=== PATIENT | female | born 1975 | race Hispanic/Latino ===

== ENCOUNTER 2018-07-30 15:27 | Emergency (ER) | payer BC ==
[2018-07-30] MEDS ORDERED: NA CHLORIDE 0.9% 1,000 ML ONE (16:11)
[2018-07-30] MEDS ORDERED: METOCLOPRAMIDE 10 MG/2mL INJ ONE (16:11)
--- NOTE | 2018-07-30 18:10 | ER ---
Nurse's Notes [facility] Name: Yesenia Stephen Age: 42 yrs Sex: Female : 1975 Arrival Date: 07/30/2018 Time: 15:30 Bed 7 Private MD: Libby Wallace H Diagnosis: Headache;Viral Syndrome Presentation: 07/30 15:36 Presenting complaint: Patient states: I started having a headache and stomach pain 2 kr2 days ago, I have had diarrhea. I have not vomited. I do have headaches but never had anything like this, I am sensitive to sound and light. I have been coughing and sneezing too. Transition of care: patient was not received from another setting of care. Onset of symptoms was July 28, 2018. Risk Assessment: Do you want to hurt yourself or someone else? Patient reports no desire to harm self or others. Initial Sepsis Screen: Does the patient meet any 2 criteria? No. Patient's initial sepsis screen is negative. Care prior to arrival: None. 15:36 Method Of Arrival: Ambulatory kr2 15:36 Acuity: HNANAH 2 kr2 16:10 Initial Sepsis Screen: Does the patient have a suspected source of infection? No. sv Patient's initial sepsis screen is negative. 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 - Social history:: Smoking status: Patient/guardian denies using tobacco. - Ebola Screening: : No symptoms or risks identified at this time. - Family history:: not pertinent. - Hospitalizations: : No recent hospitalization is reported. Screenin:10 Abuse screen: Denies threats or abuse. Denies injuries from another. Nutritional sv screening: No deficits noted. Tuberculosis screening: No symptoms or risk factors identified. Fall Risk None identified. Assessment: 16:10 General: Appears in no apparent distress. uncomfortable, well developed, Behavior is sv calm, cooperative, appropriate for age. Pain: Complains of pain in top of head, forehead, right methodist and left methodist Pain currently is 10 out of 10 on a pain scale. Pain began 2-3 days ago. Is continuous, Noted to be guarding, Also complains of photophobia. Neuro: Level of Consciousness is awake, alert, obeys commands, Oriented to person, place, time, situation, Moves all extremities. Full function Speech is normal. Respiratory: Respiratory effort is even, unlabored, Respiratory pattern is regular, symmetrical. GI: Reports lower abdominal pain, upper abdominal pain. Derm: Skin is normal, Skin temperature is hot. 18:18 Reassessment: Patient appears in no apparent distress at this time. Patient and/or sv family updated on plan of care and expected duration. Pain level reassessed. Patient is alert, oriented x 3, equal unlabored respirations, skin warm/dry/pink. Patient states feeling better. Patient states symptoms have improved. Vital Signs: 15:40 Pulse 127; Resp 22; Temp 100.4; Pulse Ox 97% on R/A; Weight 79.38 kg; Height 5 ft. 0 kr2 in. (152.40 cm); Pain 10/10; 16:19 BP 126 / 86; Pulse 101; Resp 16; Pulse Ox 99% ; sv 16:50 Temp 99.1(O); sv 18:18 BP 118 / 77; Pulse 99; Resp 16; Pulse Ox 99% ; sv 15:40 Body Mass Index 34.18 (79.38 kg, 152.40 cm) kr2 [place] Coma Score: 17:29 Eye Response: spontaneous(4). Verbal Response: oriented(5). Motor Response: obeys rn commands(6). Total: 15. ED Course: 15:30 Patient arrived in ED. sb2 15:30 Libby Wallace DO is Private Physician. sb2 15:39 Triage completed. kr2 15:41 Arm band placed on right wrist. kr2 15:46 Araceli Parsons, SHONA is Primary Nurse. sv 15:49 Jose Chávez MD is Attending Physician. rn 16:10 Patient has correct armband on for positive identification. Bed in low position. Call sv light in reach. Pulse ox on. NIBP on. Door closed. Noise minimized. Lights dimmed. Head of bed elevated. 16:10 Initial lab(s) drawn, by me, sent to lab. Flu and/or RSV swab sent to lab. Strep swab sv sent to lab. Inserted saline lock: 20 gauge in right antecubital area, using aseptic technique. Blood collected. Flushed right antecubital with 5 ml normal saline. 16:37 Group A Streptococcus Rapid Sc Sent. sv 16:37 Influenza Screen (A Sent. sv 16:44 Throat Culture Sent. sv 17:27 Urine collected: clean catch specimen, clear, jolene colored. jb1 18:18 No provider procedures requiring assistance completed. IV discontinued, intact, sv bleeding controlled, No redness/swelling at site. Pressure dressing applied. Administered Medications: 16:15 Drug: NS 0.9% 1000 ml Route: IV; Rate: 1000 ml; Site: right antecubital; sv 17:00 Follow up: Response: No adverse reaction; IV Status: Completed infusion; IV Intake: sv 1000ml 16:15 Drug: Reglan 10 mg Route: IVP; Site: right antecubital; sv 16:37 Follow up: Response: No adverse reaction sv Intake: 17:00 IV: 1000ml; Total: 1000ml. sv Outcome: 18:09 Discharge ordered by . rn 18:19 Discharged to home ambulatory. sv 18:19 Condition: stable 18:19 Discharge instructions given to patient, Instructed on discharge instructions, follow up and referral plans. Demonstrated understanding of instructions, follow-up care. 18:19 Patient left the ED. sv Signatures: Lebron San jb1 Araceli Parsons RN RN sv Jose Chávez MD MD rn Reaves, Karey, RN RN kr2 Crystal Mac2
--- NOTE | 2018-07-30 18:11 | EDPHYS ---
Physician Documentation [facility] Name: Yesenia Stephen Age: 42 yrs Sex: Female : 1975 Arrival Date: 07/30/2018 Time: 15:30 Bed 7 Private MD: Libby Wallace H ED Physician Jose Chávez HPI: 07/30 17:15 This 42 yrs old Female presents to ER via Ambulatory with complaints of rn Headache, Abdominal Pain. 17:15 The patient complains of pain to the top of head. The patient describes the headache as rn aching. 17:17 Onset: The symptoms/episode began/occurred 2 day(s) ago. Severity of symptoms: At its rn worst the pain was mild, in the emergency department the pain is unchanged. The patient has not experienced similar symptoms in the past. Reports low grade fever, headaches, congestion, fatigue.. 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 - Social history:: Smoking status: Patient/guardian denies using tobacco. - Ebola Screening: : No symptoms or risks identified at this time. - Family history:: not pertinent. - Hospitalizations: : No recent hospitalization is reported. ROS: 17:17 Constitutional: + fever and chills Eyes: Negative for injury, pain, redness, and returning officer, ENT: + mild congestion Neck: Negative for injury, pain, and swelling, Cardiovascular: Negative for chest pain, palpitations, and edema, Respiratory: Negative for shortness of breath, cough, wheezing, and pleuritic chest pain, Abdomen/GI: Negative for vomiting, diarrhea, and constipation, Back: Negative for injury and pain, MS/Extremity: Negative for injury and deformity, Skin: Negative for injury, rash, and discoloration, Neuro: Negative for numbness, tingling, and seizure. Exam: 17:17 Constitutional: This is a well developed, well nourished patient who is awake, alert, rn and in no acute distress. ambulatory to room without distress Head/Face: Normocephalic, atraumatic. Eyes: Pupils equal round and reactive to light, extra-ocular motions intact. Lids and lashes normal. Conjunctiva and sclera are non-icteric and not injected. Cornea within normal limits. Periorbital areas with no swelling, redness, or edema. ENT: Nares patent. No nasal discharge, no septal abnormalities noted. Mild pharyngeal erythema, no stridor, no cervical LAD, + left posterior auricular LAD. Neck: Trachea midline, no thyromegaly or masses palpated, and no cervical lymphadenopathy. Supple, full range of motion without nuchal rigidity, or vertebral point tenderness. No Meningismus. Cardiovascular: Regular rate and rhythm, No pulse deficits. Respiratory: Lungs have equal breath sounds bilaterally, clear to auscultation. No increased work of breathing, no retractions or nasal flaring. Abdomen/GI: Soft, non-tender, with normal bowel sounds. No distension or tympany. No guarding or rebound. No evidence of tenderness throughout. Skin: Warm, dry with normal turgor. Normal color with no rashes, no lesions, and no evidence of cellulitis. MS/ Extremity: Pulses equal, no cyanosis. Neurovascular intact. Full, normal range of motion. Equal circumference. Neuro: Awake and alert, GCS 15, oriented to person, place, time, and situation. Cranial nerves II-XII grossly intact. Motor strength 5/5 in all extremities. Sensory grossly intact. Cerebellar exam normal. Normal gait. Vital Signs: 15:40 Pulse 127; Resp 22; Temp 100.4; Pulse Ox 97% on R/A; Weight 79.38 kg; Height 5 ft. 0 kr2 in. (152.40 cm); Pain 10/10; 16:19 BP 126 / 86; Pulse 101; Resp 16; Pulse Ox 99% ; sv 16:50 Temp 99.1(O); sv 18:18 BP 118 / 77; Pulse 99; Resp 16; Pulse Ox 99% ; sv 15:40 Body Mass Index 34.18 (79.38 kg, 152.40 cm) kr2 [place] Coma Score: 17:29 Eye Response: spontaneous(4). Verbal Response: oriented(5). Motor Response: obeys rn commands(6). Total: 15. MDM: 15:49 Patient medically screened. rn 17:29 Differential diagnosis: migraine, tension headache, vasomotor headache, Strep, flu, rn ike. Data reviewed: vital signs, nurses notes, lab test result(s), and as a result, I will discharge patient. Counseling: I had a detailed discussion with the patient and/or guardian regarding: the historical points, exam findings, and any diagnostic results supporting the discharge/admit diagnosis, lab results, the need for outpatient follow up, to return to the emergency department if symptoms worsen or persist or if there are any questions or concerns that arise at home. Response to treatment: the patient's symptoms have markedly improved after treatment, and as a result, I will discharge patient. Special discussion: I discussed with the patient/guardian in detail that at this point there is no indication for admission to the hospital. It is understood, however, that if the symptoms persist or worsen the patient needs to return immediately for re-evaluation. ED course: Pt improved with motrin, no meningismus, neg flu/strep/mono/UA, ambulatory, no peritoneal signs, I really feel like she has mono given constellation of symptoms, and posterior auricular LAD. Recommend dc home with fever control, fluids, and return precautions.. 07/30 16:22 Order name: [place] Screen; Complete Time: 17:08 EDOK 07/30 16:22 Order name: Influenza Screen (A ; Complete Time: 16:49 EDOK 07/30 16:22 Order name: Group A Streptococcus Rapid Sc; Complete Time: 16:49 EDOK 07/30 15:55 Order name: IV Start; Complete Time: 16:19 rn 07/30 16:38 Order name: Throat Culture EDOK 07/30 17:30 Order name: Urine Dipstick--Ancillary (enter results) eb Administered Medications: 16:15 Drug: NS 0.9% 1000 ml Route: IV; Rate: 1000 ml; Site: right antecubital; sv 17:00 Follow up: Response: No adverse reaction; IV Status: Completed infusion; IV Intake: sv 1000ml 16:15 Drug: Reglan 10 mg Route: IVP; Site: right antecubital; sv 16:37 Follow up: Response: No adverse reaction sv Disposition: 07/30/18 18:09 Discharged to Home. Impression: Headache, Viral Syndrome. - Condition is Stable. - Discharge Instructions: General Headache Without Cause, Infectious Mononucleosis. - Medication Reconciliation Form, Thank You Letter, Antibiotic Education, Prescription Opioid Use form. - Follow up: Private Physician; When: As needed; Reason: Recheck today's complaints, Re-evaluation by your physician. - Problem is new. - Symptoms have improved. Signatures: Dispatcher [employer] Araceli Dietz RN RN sv Jose Chávez MD MD rn Reaves, Karey, RN RN kr2 Corrections: (The following items were deleted from the chart) 18:19 18:09 07/30/2018 18:09 Discharged to Home. Impression: Headache; Viral Syndrome. sv Condition is Stable. Forms are Medication Reconciliation Form, Thank You Letter, Antibiotic Education, Prescription Opioid Use. Follow up: Private Physician; When: As needed; Reason: Recheck today's complaints, Re-evaluation by your physician. Problem is new. Symptoms have improved. rn
[2018-07-30 19:22] VITALS: O2SAT 99
[2018-07-30 19:23] VITALS: TEMP 99.1
[2018-07-30 19:24] VITALS: BP 118/77
[2018-07-30 19:26] LABS: Urine Blood TRACE (NEG); Urine Glucose NEGATIVE (NEG); Urine Protein NEGATIVE (NEG)
== END 2018-07-30 18:19 | disposition home or self-care (01) ==
LOC: ER 15:27
DX: B34.9 Viral infection, unspecified (principal); I10 Essential (primary) hypertension
CPT/HCPCS: 36415; 81003; 86308; 87070; 87081; 87804; 96361; 96374; 99284; J2765; J7030

== ENCOUNTER 2018-12-23 09:04 | Emergency (ER) | payer BC ==
[2018-12-23] MEDS ORDERED: NA CHLORIDE 0.9% 1,000 ML ONE (09:43)
[2018-12-23 09:46] LABS: Absolute Monocytes 0.5 K/uL (0.1-1.3); Absolute Neutrophil 2.7 K/uL (1.8-8.0); Basophils % 0.8 % (0-1.3); Hematocrit 43.3 % (36.0-45.0); Lymphocytes % 46.4 % (15.3-44.8); MPV 9.6 fL (7.6-11.3); Monocytes % 8.1 % (3.3-12.3); RBC Red Blood Cell Count 4.69 M/uL (3.86-4.86)
[2018-12-23 10:10] LABS: ALT/SGPT 41 U/L (12-78); AST/SGOT 24 U/L (15-37); Albumin 4.1 g/dL (3.4-5.0); Alkaline Phosphatase 83 U/L (45-117); BUN Blood Urea Nitrogen 12 mg/dL (7-18); Bicarbonate 25 mmol/L (21-32); Bilirubin Direct 0.1 mg/dL (0-0.2); Bilirubin Total 0.7 mg/dL (0.2-1.0); Glucose Level 96 mg/dL (74-106); Potassium 3.8 mmol/L (3.5-5.1); Protein, Total 7.6 g/dL (6.4-8.2); Sodium Level 140 mmol/L (136-145)
[2018-12-23] MEDS ORDERED: DICYCLOMINE HCL 10 MG CAP ONE (10:17)
[2018-12-23 10:32] LABS: Blood Morphology Comment NOT SEEN (NOT SEEN); Platelet Estimate ADEQ
--- NOTE | 2018-12-23 11:00 | ER ---
Nurse's Notes [facility] Name: Yesenia Stephen Age: 43 yrs Sex: Female : 1975 Arrival Date: 12/23/2018 Time: 09:08 Bed 5 Private MD: Libby Wallace H Diagnosis: Lower abdominal pain, unspecified Presentation: 12/23 09:16 Presenting complaint: Patient states: a week ago, i started having this abd pain, more hj on my lower abdomen area, so i took azo for UTI, went to the urgent care today, ran my urine, they told me i dont have UTI; but the pain is still there on both my lower abd, the pain moves to the back sometimes; denies N/V; denies diarrhea; denies fever and chills;. Transition of care: patient was not received from another setting of care. Onset of symptoms was December 23, 2018. Risk Assessment: Do you want to hurt yourself or someone else? Patient reports no desire to harm self or others. Initial Sepsis Screen: Does the patient meet any 2 criteria? No. Patient's initial sepsis screen is negative. Does the patient have a suspected source of infection? No. Patient's initial sepsis screen is negative. Care prior to arrival: None. 09:16 Method Of Arrival: Ambulatory 09:16 Acuity: HANNAH 3 hj Triage Assessment: 09:20 General: Appears in no apparent distress. uncomfortable, Behavior is calm, cooperative, hj appropriate for age. Pain: Complains of pain in right lower quadrant and left lower quadrant Pain radiates to left low back and right low back. GI: Reports lower abdominal pain. 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 - Social history:: Smoking status: Patient/guardian denies using tobacco, Patient/guardian denies using alcohol. - Ebola Screening: : Patient negative for fever greater than or equal to 101.5 degrees Fahrenheit, and additional compatible Ebola Virus Disease symptoms Patient denies exposure to infectious person Patient denies travel to an Ebola-affected area in the 21 days before illness onset. Screenin:21 Abuse screen: Denies threats or abuse. Denies injuries from another. Nutritional hj screening: No deficits noted. Tuberculosis screening: No symptoms or risk factors identified. Fall Risk None identified. Assessment: 09:21 GI: Bowel sounds present X 4 quads. Abd is soft and non tender. hj 09:21 General: Appears in no apparent distress. uncomfortable, Behavior is calm, cooperative, hj appropriate for age. Pain: Complains of pain in left lower quadrant and right lower quadrant Pain radiates to right low back and left low back. Neuro: Level of Consciousness is awake, alert, obeys commands, Oriented to person, place, time, situation, Appropriate for age. Cardiovascular: Capillary refill < 3 seconds Patient's skin is warm and dry. Respiratory: Airway is patent Respiratory effort is even, unlabored, Respiratory pattern is regular, symmetrical. : No signs and/or symptoms were reported regarding the genitourinary system. EENT: No signs and/or symptoms were reported regarding the EENT system. Derm: No signs and/or symptoms reported regarding the dermatologic system. Musculoskeletal: No signs and/or symptoms reported regarding the musculoskeletal system. 09:30 Reassessment: pt BP- 80/40; HR- 49; pt was placed on Trendelenburg position; provider hj notified with order;. 09:35 Reassessment: Patient and/or family updated on plan of care and expected duration. Pain hj level reassessed. Patient is alert, oriented x 3, equal unlabored respirations, skin warm/dry/pink. Patient states feeling better. Patient states symptoms have improved. Vital Signs: 09:21 BP 141 / 100; Pulse 67; Resp 18; Temp 98.0(TE); Pulse Ox 100% on R/A; Weight 78.93 kg; hj Height 5 ft. 0 in. (152.40 cm); Pain 5/10; 09:30 BP 80 / 40; Pulse 49; Resp 18; Pulse Ox 100% on R/A; hj 09:34 BP 116 / 85; Pulse 18; Resp 18; Pulse Ox 100% on R/A; hj 09:51 BP 122 / 81; Pulse 60; Resp 18; Pulse Ox 100% on R/A; hj 10:20 BP 121 / 80; Pulse 62; Resp 18; Pulse Ox 100% on R/A; hj 09:21 Body Mass Index 33.98 (78.93 kg, 152.40 cm) hj 09:30 provider notified with ordser; hj ED Course: 09:08 Patient arrived in ED. mr 09:08 Libby Wallace DO is Private Physician. mr 09:12 Cynthia Cooper FNP-C is PHCP. snw 09:12 Emily Fernandez MD is Attending Physician. snw 09:16 Brandt Webster, SHONA is Primary Nurse. hj 09:18 Triage completed. hj 09:21 Arm band placed on right wrist. hj 09:21 Patient has correct armband on for positive identification. Placed in gown. Bed in low hj position. Call light in reach. Side rails up X2. 09:25 Missed attempt(s): 22 gauge in right antecubital area. Bleeding controlled, band aid ss applied, catheter tip intact. 09:32 Inserted saline lock: 20 gauge in left antecubital area, using aseptic technique. Blood ss collected. 10:59 Libby Wallace DO is Referral Physician. snw 11:07 No provider procedures requiring assistance completed. IV discontinued, intact, hj bleeding controlled, No redness/swelling at site. Pressure dressing applied. Administered Medications: 09:34 Drug: NS 0.9% 1000 ml Route: IV; Rate: 1 bolus; Site: left antecubital; hj 10:36 Follow up: IV Status: Completed infusion; IV Intake: 1000ml hj 10:02 Drug: Bentyl 20 mg Route: PO; hj 10:07 Follow up: Response: No adverse reaction hj Intake: 10:36 IV: 1000ml; Total: 1000ml. hj Outcome: 11:00 Discharge ordered by . snw 11:07 Discharged to home ambulatory. hj 11:07 Condition: stable 11:07 Discharge instructions given to patient, Instructed on discharge instructions, follow up and referral plans. medication usage, Demonstrated understanding of instructions, follow-up care, medications, Prescriptions given X 1. 11:08 Patient left the ED. hj Signatures: Cynthia Cooper FNP-C FNP-Selma Fuentes mr Deirdre Edgar RN RN ss Joaquin, Henry, RN RN hj Corrections: (The following items were deleted from the chart) 09:37 09:30 Reassessment: pt BP- 80/40; HR- 49; provider notified with order; rehana kimball
--- NOTE | 2018-12-23 11:01 | EDPHYS ---
Physician Documentation [facility] Name: Yesenia Stephen Age: 43 yrs Sex: Female : 1975 Arrival Date: 12/23/2018 Time: 09:08 Bed 5 Private MD: Libby Wallace H ED Physician Emily Fernandez HPI: 12/23 09:28 This 43 yrs old Female presents to ER via Ambulatory with complaints of snw Abdominal Pain, Back Pain. 09:28 The patient presents with abdominal pain right lower quadrant, in the left lower snw quadrant. Onset: The symptoms/episode began/occurred gradually, 1 week(s) ago, and became persistent. The symptoms radiate to right back. Associated signs and symptoms: none. The symptoms are described as constant. Severity of pain: At its worst the pain was mild moderate. The patient has experienced similar episodes in the past. The patient has been recently seen by a physician: The patient has been recently seen at an urgent care, just prior to arrival, for similar complaints, and was sent to the [facility] Emergency Department for further evaluation. 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 - Social history:: Smoking status: Patient/guardian denies using tobacco, Patient/guardian denies using alcohol. - Ebola Screening: : Patient negative for fever greater than or equal to 101.5 degrees Fahrenheit, and additional compatible Ebola Virus Disease symptoms Patient denies exposure to infectious person Patient denies travel to an Ebola-affected area in the 21 days before illness onset. ROS: 09:28 Constitutional: Negative for fever, chills, and weight loss, Eyes: Negative for injury, snw pain, redness, and discharge, ENT: Negative for injury, pain, and discharge, Neck: Negative for injury, pain, and swelling, Cardiovascular: Negative for chest pain, palpitations, and edema, Respiratory: Negative for shortness of breath, cough, wheezing, and pleuritic chest pain, Back: Negative for injury and pain, : Negative for injury, bleeding, discharge, and swelling, MS/Extremity: Negative for injury and deformity, Skin: Negative for injury, rash, and discoloration, Neuro: Negative for headache, weakness, numbness, tingling, and seizure. 09:28 Abdomen/GI: Positive for abdominal pain, of the right lower quadrant and left lower quadrant. Exam: 09:28 Constitutional: This is a well developed, well nourished patient who is awake, alert, snw and in no acute distress. Head/Face: Normocephalic, atraumatic. Eyes: Pupils equal round and reactive to light, extra-ocular motions intact. Lids and lashes normal. Conjunctiva and sclera are non-icteric and not injected. Cornea within normal limits. Periorbital areas with no swelling, redness, or edema. ENT: Nares patent. No nasal discharge, no septal abnormalities noted. Tympanic membranes are normal and external auditory canals are clear. Oropharynx with no redness, swelling, or masses, exudates, or evidence of obstruction, uvula midline. Mucous membranes moist. Neck: Trachea midline, no thyromegaly or masses palpated, and no cervical lymphadenopathy. Supple, full range of motion without nuchal rigidity, or vertebral point tenderness. No Meningismus. Chest/axilla: Normal chest wall appearance and motion. Nontender with no deformity. No lesions are appreciated. Cardiovascular: Regular rate and rhythm with a normal S1 and S2. No gallops, murmurs, or rubs. Normal PMI, no JVD. No pulse deficits. Respiratory: Lungs have equal breath sounds bilaterally, clear to auscultation and percussion. No rales, rhonchi or wheezes noted. No increased work of breathing, no retractions or nasal flaring. Abdomen/GI: Soft, mild tender to lower abdomen with radiation to back, with normal bowel sounds. No distension or tympany. No guarding or rebound. No evidence of tenderness throughout. Back: No spinal tenderness. No costovertebral tenderness. Full range of motion. Skin: Warm, dry with normal turgor. Normal color with no rashes, no lesions, and no evidence of cellulitis. MS/ Extremity: Pulses equal, no cyanosis. Neurovascular intact. Full, normal range of motion. Neuro: Awake and alert, GCS 15, oriented to person, place, time, and situation. Cranial nerves II-XII grossly intact. Motor strength 5/5 in all extremities. Sensory grossly intact. Cerebellar exam normal. Normal gait. Psych: Awake, alert, with orientation to person, place and time. Behavior, mood, and affect are within normal limits. Vital Signs: 09:21 BP 141 / 100; Pulse 67; Resp 18; Temp 98.0(TE); Pulse Ox 100% on R/A; Weight 78.93 kg; hj Height 5 ft. 0 in. (152.40 cm); Pain 5/10; 09:30 BP 80 / 40; Pulse 49; Resp 18; Pulse Ox 100% on R/A; hj 09:34 BP 116 / 85; Pulse 18; Resp 18; Pulse Ox 100% on R/A; hj 09:51 BP 122 / 81; Pulse 60; Resp 18; Pulse Ox 100% on R/A; hj 10:20 BP 121 / 80; Pulse 62; Resp 18; Pulse Ox 100% on R/A; hj 09:21 Body Mass Index 33.98 (78.93 kg, 152.40 cm) hj 09:30 provider notified with ordser; hj MDM: 09:13 Patient medically screened. snw 11:13 Data reviewed: vital signs, nurses notes. Data interpreted: Pulse oximetry: on room air snw is 100 %. Interpretation: normal. Special discussion: I have referred the patient to see his PCP for further evaluation of high blood pressure. Based on the history and exam findings, there is no indication for further emergent testing or inpatient evaluation. I discussed with the patient/guardian the need to see the primary care provider for further evaluation of the symptoms. 12/23 09:13 Order name: Basic Metabolic Panel; Complete Time: 10:14 snw 12/23 09:13 Order name: CBC with Diff; Complete Time: 10:33 snw 12/23 09:13 Order name: Creatinine for Radiology; Complete Time: 10:14 snw 12/23 09:13 Order name: Hepatic Function; Complete Time: 10:14 snw 12/23 09:13 Order name: Urine Microscopic Only snw 12/23 09:47 Order name: Manual Differential; Complete Time: 10:33 EDMS 12/23 09:13 Order name: IV Saline Lock; Complete Time: 09:33 snw 12/23 09:13 Order name: Labs collected and sent; Complete Time: 09:33 snw 12/23 11:05 Order name: Urine Dipstick--Ancillary (enter results) bd 12/23 11:05 Order name: Urine --Ancillary (enter results) bd Administered Medications: 09:34 Drug: NS 0.9% 1000 ml Route: IV; Rate: 1 bolus; Site: left antecubital; hj 10:36 Follow up: IV Status: Completed infusion; IV Intake: 1000ml hj 10:02 Drug: Bentyl 20 mg Route: PO; hj 10:07 Follow up: Response: No adverse reaction Disposition: 14:25 Co-signature as Attending Physician, Emily Fernandez MD. ma2 Disposition: 12/23/18 11:00 Discharged to Home. Impression: Lower abdominal pain, unspecified. - Condition is Stable. - Discharge Instructions: Abdominal Pain, Adult, Hypertension. - Prescriptions for Bentyl 20 mg Oral Tablet - take 1 tablet by ORAL route every 6 hours As needed; 20 tablet. - Medication Reconciliation Form, Thank You Letter, Antibiotic Education, Prescription Opioid Use, Work release form form. - Follow up: Libby Wallace DO; When: 1 - 2 days; Reason: Recheck today's complaints, Continuance of care, Re-evaluation by your physician. Follow up: Emergency Department; When: As needed; Reason: Worsening of condition. Signatures: Dispatcher [facility] ED[facility] Cynthia Cooper, [employer] ARCHITECT-Csnw Brandt Webster RN RN hj Alzahri, Mohammad, MD MD ma2 Corrections: (The following items were deleted from the chart) 11:08 11:00 12/23/2018 11:00 Discharged to Home. Impression: Lower abdominal pain, hj unspecified. Condition is Stable. Forms are Medication Reconciliation Form, Thank You Letter, Antibiotic Education, Prescription Opioid Use. Follow up: Libby Wallace; When: 1 - 2 days; Reason: Recheck today's complaints, Continuance of care, Re-evaluation by your physician. Follow up: Emergency Department; When: As needed; Reason: Worsening of condition. snw
[2018-12-23 11:09] LABS: Urine Blood NEGATIVE (NEG); Urine Glucose NEGATIVE (NEG); Urine Protein 1+ (NEG)
[2018-12-23 11:15] LABS: Urine Bacteria <20 /HPF (<20); Urine Culture Reflex Order NOT NEEDED; Urine RBC NONE SEEN /HPF (NONE SEEN)
[2018-12-23 11:17] VITALS: TEMP 98; O2SAT 100
[2018-12-23 11:22] VITALS: BP 121/80
== END 2018-12-23 11:08 | disposition home or self-care (01) ==
LOC: ER 09:04
DX: R10.30 Lower abdominal pain, unspecified (principal); I10 Essential (primary) hypertension; Z87.442 Personal history of urinary calculi
CPT/HCPCS: 36415; 80048; 80076; 81003; 81015; 81025; 85025; 96360; 99284; J7030

== ENCOUNTER 2019-08-09 10:42 | Emergency (ER) | payer BC ==
[2019-08-09] MEDS ORDERED: ONDANSETRON 4 MG/2 ML VIAL ONE (12:03)
[2019-08-09] MEDS ORDERED: FAMOTIDINE 20 MG/2 ML VIAL IV ONE (12:03)
[2019-08-09] MEDS ORDERED: NA CHLORIDE 0.9% 1,000 ML ONE (12:03)
[2019-08-09 12:21] LABS: Absolute Lymphocytes (CBC) 1.9 K/uL (0.7-4.9); Basophils % 0.2 % (0-1.3); Hematocrit 40.9 % (36.0-45.0); Lymphocytes % 20.4 % (15.3-44.8); MPV 9.3 fL (7.6-11.3); RBC Red Blood Cell Count 4.51 M/uL (3.86-4.86)
[2019-08-09] MEDS ORDERED: LIDOCAINE VISCOUS 2% SOLN 15 ML UDC ONE (12:27)
[2019-08-09] MEDS ORDERED: MAGNE/ALUM HYDROXD 30 ML UCUP ONE (12:27)
[2019-08-09 12:37] LABS: Albumin 3.8 g/dL (3.4-5.0); Bilirubin Direct 0.1 mg/dL (0-0.2); Bilirubin Total 0.5 mg/dL (0.2-1.0); Potassium 3.4 mmol/L (3.5-5.1); Protein, Total 7.4 g/dL (6.4-8.2)
--- NOTE | 2019-08-09 13:42 | EDPHYS ---
Physician Documentation [facility] Name: Yesenia Stephen Age: 43 yrs Sex: Female : 1975 Arrival Date: 08/09/2019 Time: 10:47 Bed 24 Private MD: Libby Wallace H ED Physician Emily Fernandez HPI: 08/09 13:35 This 43 yrs old Female presents to ER via Wheelchair with complaints of ma2 Abdominal Pain, Dizziness. 13:35 Onset: The symptoms/episode began/occurred gradually, 1 day(s) ago. Associated signs ma2 and symptoms: Pertinent negatives: agitation, chest pain, diaphoresis, headache, palpitations, , shortness of breath. Severity of symptoms: At their worst the symptoms were mild in the emergency department the symptoms are unchanged. The patient has experienced a previous episode. epigastric abdominal pain . 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 - Social history:: Smoking status: Patient/guardian denies using tobacco, The patient lives. - Ebola Screening: : No symptoms or risks identified at this time. - Family history:: not pertinent. ROS: 13:35 Constitutional: Negative for fever, chills, and weight loss, Cardiovascular: Negative ma2 for chest pain, palpitations, and edema, Respiratory: Negative for shortness of breath, cough, wheezing, and pleuritic chest pain, Abdomen/GI: Negative for abdominal pain, nausea, diarrhea, and constipation, Back: Negative for injury and pain, MS/Extremity: Negative for injury and deformity. Exam: 13:35 Constitutional: This is a well developed, well nourished patient who is awake, alert, ma2 and in no acute distress. Chest/axilla: Normal chest wall appearance and motion. Nontender with no deformity. No lesions are appreciated. Cardiovascular: Regular rate and rhythm with a normal S1 and S2. No gallops, murmurs, or rubs. Normal PMI, no JVD. No pulse deficits. Respiratory: Lungs have equal breath sounds bilaterally, clear to auscultation and percussion. No rales, rhonchi or wheezes noted. No increased work of breathing, no retractions or nasal flaring. Abdomen/GI: Soft, non-tender, with normal bowel sounds. No distension or tympany. No guarding or rebound. No evidence of tenderness throughout. MS/ Extremity: Pulses equal, no cyanosis. Neurovascular intact. Full, normal range of motion. Neuro: Awake and alert, GCS 15, oriented to person, place, time, and situation. Cranial nerves II-XII grossly intact. Motor strength 5/5 in all extremities. Sensory grossly intact. Cerebellar exam normal. Normal gait. Vital Signs: 10:55 BP 109 / 93; Pulse 78; Resp 16; Temp 97.9; Pulse Ox 100% on R/A; Weight 67.59 kg; hb Height 5 ft. (152.40 cm); Pain 10/10; 12:30 BP 110 / 64; Pulse 80; Resp 18; Temp 98; Pulse Ox 100% on R/A; mg2 12:30 BP 106 / 76; Pulse 75; Resp 18; Temp 98; Pulse Ox 100% on R/A; mg2 10:55 Body Mass Index 29.10 (67.59 kg, 152.40 cm) hb MDM: 11:50 Patient medically screened. ma2 13:35 Differential diagnosis: sepsis, gastricitis peptic ulcer disease, pancratitis . Data ma2 reviewed: vital signs, nurses notes. Counseling: I had a detailed discussion with the patient and/or guardian regarding: the historical points, exam findings, and any diagnostic results supporting the discharge/admit diagnosis, the presence of at least one elevated blood pressure reading (>120/80) during this emergency department visit, the need for outpatient follow up. Response to treatment: the patient's symptoms have markedly improved after treatment. ED course: patient has pancreatitis, she is s/p cholecystectomy, no biliary bstruction on lab, alessandra score is low with mortality less than 2%, she has no sirs will do outpatient f/u with gi, return precaution given . 08/09 11:59 Order name: Basic Metabolic Panel mg2 08/09 11:59 Order name: CBC with Diff mg2 08/09 11:59 Order name: Creatinine for Radiology mg2 08/09 11:59 Order name: Hepatic Function mg2 08/09 11:59 Order name: Lipase mg2 08/09 12:34 Order name: Creatinine (Radiology Only); Complete Time: 13:03 EDMS 08/09 12:37 Order name: Basic Metabolic Panel; Complete Time: 13:03 EDMS 08/09 12:37 Order name: Liver (Hepatic) Function; Complete Time: 13:03 EDMS 08/09 12:37 Order name: Lipase; Complete Time: 13:03 EDMS 08/09 12:42 Order name: CBC with Automated Diff; Complete Time: 13:03 EDMS 08/09 13:04 Order name: US Abdomen Limited ma2 08/09 11:59 Order name: IV Saline Lock; Complete Time: 12:14 mg2 08/09 11:59 Order name: Labs collected and sent; Complete Time: 12:14 mg2 Administered Medications: 12:13 Drug: Zofran 4 mg Route: IVP; Site: right forearm; mg2 13:48 Follow up: Response: No adverse reaction; Marked relief of symptoms mg2 12:14 Drug: NS 0.9% 1000 ml Route: IV; Rate: 1000 ml; Site: right forearm; mg2 13:49 Follow up: Response: No adverse reaction; IV Status: Completed infusion; IV Intake: mg2 1000ml 12:14 Drug: Pepcid 20 mg Route: IVP; Site: right forearm; mg2 13:48 Follow up: Response: No adverse reaction; Marked relief of symptoms mg2 12:28 Drug: GI Cocktail without - (Maalox Suspension 30 ml, Lidocaine Liquid 2 % 15 mg2 ml) Route: PO; 13:48 Follow up: Response: No adverse reaction mg2 Disposition: 08/09/19 13:41 Discharged to Home. Impression: Acute pancreatitis, unspecified. - Condition is Stable. - Discharge Instructions: Acute Pancreatitis. - Prescriptions for Zofran 4 mg Oral Tablet - take 1 tablet by ORAL route every 12 hours As needed; 20 tablet. Pepcid 20 mg Oral Tablet - take 1 tablet by ORAL route once daily for 10 days; 10 tablet. Tylenol- Codeine #3 300-30 mg Oral Tablet - take 2 tablet by ORAL route every 6 hours As needed; 30 tablet. - Medication Reconciliation Form, Thank You Letter, Antibiotic Education, Prescription Opioid Use form. - Follow up: En Angulo MD; When: Tomorrow; Reason: Continuance of care. Signatures: Dispatcher [employer] EDBhakti Jackson RN RN Emily Fernandez MD MD ma2 Chevy Miguel RN RN mg2 Corrections: (The following items were deleted from the chart) 14:05 13:41 08/09/2019 13:41 Discharged to Home. Impression: Acute pancreatitis, unspecified. mg2 Condition is Stable. Prescriptions for Zofran 4 mg Oral Tablet - take 1 tablet by ORAL route every 12 hours As needed; 20 tablet, Pepcid 20 mg Oral Tablet - take 1 tablet by ORAL route once daily for 10 days; 10 tablet. and Forms are Medication Reconciliation Form, Thank You Letter, Antibiotic Education, Prescription Opioid Use. Follow up: En Angulo; When: Tomorrow; Reason: Continuance of care. ma2
--- NOTE | 2019-08-09 13:42 | ER ---
Nurse's Notes [facility] Name: Yesenia Stephen Age: 43 yrs Sex: Female : 1975 Arrival Date: 08/09/2019 Time: 10:47 Bed 24 Private MD: Libby Wallace H Diagnosis: Acute pancreatitis, unspecified Presentation: 08/09 10:53 Presenting complaint: N/V/D and epigastric pain upon waking today. Transition of care: hb patient was not received from another setting of care. Onset of symptoms was August 09, 2019. Risk Assessment: Do you want to hurt yourself or someone else? Patient reports no desire to harm self or others. Initial Sepsis Screen: Does the patient meet any 2 criteria? No. Patient's initial sepsis screen is negative. Care prior to arrival: None. 10:53 Method Of Arrival: Wheelchair hb 10:53 Acuity: HANNAH 3 hb 12:15 Initial Sepsis Screen: Does the patient have a suspected source of infection? No. mg2 Patient's initial sepsis screen is negative. 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 - Social history:: Smoking status: Patient/guardian denies using tobacco, The patient lives. - Ebola Screening: : No symptoms or risks identified at this time. - Family history:: not pertinent. Screenin:15 Abuse screen: Denies threats or abuse. Denies injuries from another. Nutritional mg2 screening: No deficits noted. Tuberculosis screening: No symptoms or risk factors identified. Fall Risk IV access (20 points). Assessment: 12:14 General: Appears in no apparent distress. comfortable, Behavior is calm, cooperative. mg2 Pain: Complains of pain in abdomen Pain does not radiate. Pain currently is 5 out of 10 on a pain scale. Quality of pain is described as aching, Pain began gradually, Is intermittent. Neuro: Level of Consciousness is awake, alert, obeys commands, Oriented to person, place, time, situation. Cardiovascular: Capillary refill < 3 seconds Patient's skin is warm and dry. Respiratory: Airway is patent Respiratory effort is even, unlabored, Respiratory pattern is regular, symmetrical. GI: Bowel sounds present X 4 quads. Abd is soft and non tender Reports upper abdominal pain, diarrhea, epigastric pain, vomiting. : No signs and/or symptoms were reported regarding the genitourinary system. EENT: No signs and/or symptoms were reported regarding the EENT system. Derm: Skin is intact, is healthy with good turgor, Skin is pink, warm \T\ dry. normal. Musculoskeletal: Circulation, motion, and sensation intact. Capillary refill < 3 seconds. 14:04 Reassessment: Patient appears in no apparent distress at this time. Patient states mg2 feeling better. Patient states symptoms have improved. Vital Signs: 10:55 BP 109 / 93; Pulse 78; Resp 16; Temp 97.9; Pulse Ox 100% on R/A; Weight 67.59 kg; hb Height 5 ft. (152.40 cm); Pain 10/10; 12:30 BP 110 / 64; Pulse 80; Resp 18; Temp 98; Pulse Ox 100% on R/A; mg2 12:30 BP 106 / 76; Pulse 75; Resp 18; Temp 98; Pulse Ox 100% on R/A; mg2 10:55 Body Mass Index 29.10 (67.59 kg, 152.40 cm) hb ED Course: 10:47 Patient arrived in ED. mr 10:48 Libby Wallace, is Private Physician. mr 10:53 Arm band placed on. hb 10:54 Triage completed. hb 11:50 Emily Fernandez MD is Attending Physician. ma2 11:58 Chevy Miguel, SHONA is Primary Nurse. mg2 12:15 Patient has correct armband on for positive identification. Door closed. Warm blanket mg2 given. 12:15 No provider procedures requiring assistance completed. Inserted saline lock: 20 gauge mg2 in right forearm, using aseptic technique. Blood collected. 13:41 En Angulo MD is Referral Physician. ma2 14:04 IV discontinued, intact, bleeding controlled, No redness/swelling at site. Pressure mg2 dressing applied. Administered Medications: 12:13 Drug: Zofran 4 mg Route: IVP; Site: right forearm; mg2 13:48 Follow up: Response: No adverse reaction; Marked relief of symptoms mg2 12:14 Drug: NS 0.9% 1000 ml Route: IV; Rate: 1000 ml; Site: right forearm; mg2 13:49 Follow up: Response: No adverse reaction; IV Status: Completed infusion; IV Intake: mg2 1000ml 12:14 Drug: Pepcid 20 mg Route: IVP; Site: right forearm; mg2 13:48 Follow up: Response: No adverse reaction; Marked relief of symptoms mg2 12:28 Drug: GI Cocktail without - (Maalox Suspension 30 ml, Lidocaine Liquid 2 % 15 mg2 ml) Route: PO; 13:48 Follow up: Response: No adverse reaction mg2 Intake: 13:49 IV: 1000ml; Total: 1000ml. mg2 Outcome: 13:41 Discharge ordered by . erna 14:05 Discharged to home ambulatory, with family. mg2 14:05 Condition: stable 14:05 Discharge instructions given to patient, family, Instructed on discharge instructions, follow up and referral plans. medication usage, Demonstrated understanding of instructions, follow-up care, medications, Prescriptions given X 3. 14:05 Patient left the ED. mg2 Signatures: Selma Pruett Heather RN RN Emily Fernandez MD MD ma2 Gardose, Michele, RN RN mg2
[2019-08-09 14:13] VITALS: O2SAT 100
[2019-08-09 14:15] VITALS: BP 106/76; TEMP 98
== END 2019-08-09 14:05 | disposition home or self-care (01) ==
LOC: ER 10:42
DX: K85.90 Acute pancreatitis without necrosis or infection, unspecified (principal); I10 Essential (primary) hypertension; Z87.442 Personal history of urinary calculi
CPT/HCPCS: 96361; 85025; 80048; 36415; 80076; 83690; 96375; 96374; 99284; J7030; J2405

== ENCOUNTER 2019-08-10 13:37 | Emergency (ER) | payer BC ==
[2019-08-10 15:11] LABS: Absolute Lymphocytes (CBC) 2.8 K/uL (0.7-4.9); Basophils % 0.3 % (0-1.3); Hematocrit 41.8 % (36.0-45.0); Lymphocytes % 42.1 % (15.3-44.8); MPV 9.3 fL (7.6-11.3); RBC Red Blood Cell Count 4.54 M/uL (3.86-4.86)
[2019-08-10] MEDS ORDERED: HYDROMORPHONE HCL 1 MG/ML INJ ONE (15:11)
[2019-08-10] MEDS ORDERED: FAMOTIDINE 20 MG/2 ML VIAL IV ONE (15:11)
[2019-08-10] MEDS ORDERED: ONDANSETRON 4 MG/2 ML VIAL ONE (15:26)
[2019-08-10] MEDS ORDERED: NA CHLORIDE 0.9% 1,000 ML ONE (15:26)
[2019-08-10 15:30] LABS: Albumin 3.6 g/dL (3.4-5.0); Bilirubin Direct 0.1 mg/dL (0-0.2); Bilirubin Total 0.3 mg/dL (0.2-1.0); Potassium 3.6 mmol/L (3.5-5.1); Protein, Total 7.2 g/dL (6.4-8.2)
--- NOTE | 2019-08-10 15:38 | RAD REPORT ---
EXAM DESCRIPTION: CT - Abdomen Pelvis W Contrast - 08/10/2019 3:20 pm CLINICAL HISTORY: upper abd pain. elevated lipase COMPARISON: July 2017 TECHNIQUE: Biphasic, helical CT imaging of the abdomen and pelvis was performed following 100 ml non -ionic IV contrast. No oral contrast. All CT scans are performed using dose optimization technique as appropriate and may include automated exposure control or mA/KV adjustment according to patient size. FINDINGS: No suspicious findings in the lung bases. Liver size is normal and stable. Several cysts are present in the medial right lobe of the liver unch anged from 2017. No portal vein abnormality seen. No splenic abnormality seen. Gallbladder is absent. No biliary tree dilatation. No pancreatic parenchymal mass. Pancreatic contour matches 2017. No peripancreatic inflammatory flui d or stranding. Symmetric renal function is seen with no hydronephrosis or suspicious renal mass. No pyelonephritis o r acute parenchymal process. Small staghorn calcification lower pole left kidney matches the prior udy. No new adrenal abnormality. Urinary bladder is nearly fully contracted limiting assessment. Uter us and ovaries show no suspicious findings. Small left ovarian cyst is present not regarded as suspic ious. There is probably an involuting cyst of the right ovary. Stomach is grossly normal. Retained gastric content somewhat limits gastric mucosal surface assessmen t. No dilated large or small bowel. There are multiple fluid-filled distal small bowel loops. The annel endix is not clearly identifiable. No direct or indirect evidence for appendicitis. No free air, pneumatosis or focal inflammatory stranding. Trace free fluid in the dependent pelvis no t outside of physiologic limits. No hernia, mass or bulky lymphadenopathy. No suspicious bony findings. Prominent for age degenerative change L5-S1 disc level. IMPRESSION: No pancreatic or peripancreatic abnormality seen. No CT pancreatitis findings. Liver cysts match the 2017 study. Cholecystectomy clips are present. Nondilated distal fluid-filled small bowel loops are present. Nonspecific enteritis is possible.
[2019-08-10 15:46] LABS: Urine Bacteria <20 /HPF (<20); Urine RBC <5 /HPF (NONE SEEN)
[2019-08-10 15:47] LABS: Urine Culture Reflex Order NOT NEEDED; Urine Mucus 1+ /HPF (NONE SEEN)
[2019-08-10 15:47] LABS: Urine Blood NEGATIVE (NEG); Urine Glucose NEGATIVE (NEG); Urine Protein NEGATIVE (NEG); Urine Specific Gravity 1.025 (1.005-1.030); Urine pH 6.5 (5.0-7.0)
[2019-08-10 16:46] LABS: Blood Morphology Comment NOT SEEN (NOT SEEN); Platelet Estimate ADEQ
[2019-08-10] MEDS ORDERED: METRONIDAZOLE 500mg IVPB 500 MG/100 ML BAG IV ONE (16:57)
[2019-08-10] MEDS ORDERED: levoFLOXacin 500 MG TAB ONE (16:57)
[2019-08-10] MEDS ORDERED: KETOROLAC 30 MG/ML INJ ONE (17:09)
--- NOTE | 2019-08-10 17:25 | ER ---
Nurse's Notes [facility] Name: Yesenia Stephen Age: 43 yrs Sex: Female : 1975 Arrival Date: 08/10/2019 Time: 13:41 Bed 20 Private MD: Libby Wallace H Diagnosis: Acute Abdominal Pain;Acute Enteritis Presentation: 08/10 13:57 Presenting complaint: Patient states: Dr. Angulo's office sent me back here to see if ss maybe i can get a Cat scan, i am feeling really dizzy, they did blood work on Fridayaug 09 here, i got the prescriptions filled and it is not helping, and my stomach is still hurting in the middle, i am just not any better, they said to call his office if they had any questions. Transition of care: patient was not received from another setting of care. Onset of symptoms was August 10, 2019. Risk Assessment: Do you want to hurt yourself or someone else? Patient reports no desire to harm self or others. Initial Sepsis Screen: Does the patient meet any 2 criteria? No. Patient's initial sepsis screen is negative. Does the patient have a suspected source of infection? No. Patient's initial sepsis screen is negative. Care prior to arrival: None. 13:57 Method Of Arrival: Ambulatory ss 13:57 Acuity: HANNAH 3 ss Triage Assessment: 14:00 General: Appears uncomfortable, Behavior is calm, cooperative, appropriate for age. ss Pain: Complains of pain in abdomen. RRT: 13:59 LMP 07/11/2019 ss Historical: - Allergies: 14:01 NKDA; ss - Home Meds: 14:01 lisinopril Oral [Active]; Pepcid Oral [Active]; Zofran Oral [Active]; ss acetaminophen-codeine 300-15 mg Oral tab 1 tab every 4-6 hours [Active]; - PMHx: 14:01 Hypertension; Kidney stones; ss - PSHx: 14:01 Appendectomy; Cholecystectomy; ; ss - Immunization history:: Adult Immunizations. - Social history:: Smoking status: . - Ebola Screening: : Patient denies travel to an Ebola-affected area in the 21 days before illness onset. Screenin:11 Abuse screen: Denies threats or abuse. Nutritional screening: No deficits noted. tw2 Tuberculosis screening: No symptoms or risk factors identified. Fall Risk None identified. Assessment: 15:07 General: Appears in no apparent distress. uncomfortable, Behavior is calm, cooperative. rv Pain: Complains of pain in abdomen. Neuro: Level of Consciousness is awake, alert, obeys commands, Oriented to person, place, time, situation. Cardiovascular: Patient's skin is warm and dry. Respiratory: Airway is patent. GI: No signs and/or symptoms were reported involving the gastrointestinal system. : No signs and/or symptoms were reported regarding the genitourinary system. EENT: No signs and/or symptoms were reported regarding the EENT system. Derm: Skin is intact. Musculoskeletal: No signs and/or symptoms reported regarding the musculoskeletal system. 16:44 Reassessment: Patient appears in no apparent distress at this time. Patient and/or rv family updated on plan of care and expected duration. Pain level reassessed. Patient is alert, oriented x 3, equal unlabored respirations, skin warm/dry/pink. Patient states feeling better. Patient states symptoms have improved. Vital Signs: 13:59 BP 119 / 90; Pulse 74; Resp 18; Temp 99(TE); Pulse Ox 98% on R/A; Weight 67.59 kg; ss Height 5 ft. 0 in. (152.40 cm); Pain 10/10; 15:00 BP 109 / 81; Pulse 58; Resp 16; Pulse Ox 100% ; rv 15:36 BP 107 / 71; Pulse 64; Resp 17; Pulse Ox 98% ; rv 16:45 BP 121 / 71; Pulse 86; Resp 16; Pulse Ox 98% on R/A; rv 18:11 BP 124 / 74; Pulse 81; Resp 16; Pulse Ox 98% on R/A; rv 13:59 Body Mass Index 29.10 (67.59 kg, 152.40 cm) ED Course: 13:41 Patient arrived in ED. am2 13:44 Libby Wallace DO is Private Physician. am2 13:59 Triage completed. ss 13:59 Arm band placed on. ss 14:01 Bed in low position. Call light in reach. tw2 14:11 Meir Parker RN is Primary Nurse. rv 14:34 Surjit Munguia MD is Attending Physician. wa 15:07 Inserted saline lock: 22 gauge in right antecubital area, using aseptic technique. rv Blood collected. 17:18 En Angulo MD is Referral Physician. wa 18:11 No provider procedures requiring assistance completed. IV discontinued, intact, rv bleeding controlled, No redness/swelling at site. Pressure dressing applied. Administered Medications: 15:12 Drug: Pepcid 20 mg Route: IVP; Site: right antecubital; rv 16:45 Follow up: Response: No adverse reaction rv 15:13 Drug: Dilaudid 1 mg {Note: rass 0.} Route: IVP; Site: right antecubital; rv 16:46 Follow up: Response: No adverse reaction; Marked relief of symptoms; Pain is decreased; rv RASS: Alert and Calm (0) 15:30 Drug: Zofran 4 mg Route: IVP; Site: right antecubital; rv 16:46 Follow up: Response: No adverse reaction rv 15:30 Drug: NS 0.9% 1000 ml Route: IV; Rate: 1 bolus; Site: right antecubital; rv 16:45 Follow up: IV Status: Completed infusion; IV Intake: 1000ml rv 17:01 Drug: LevaQUIN 500 mg Route: PO; rv 18:10 Follow up: Response: No adverse reaction rv 17:02 Drug: Flagyl 500 mg Volume: 100 ml; Route: IVPB; Rate: 200 ml/hr; Infused Over: 30 rv mins; Site: right antecubital; 18:10 Follow up: IV Status: Completed infusion; IV Intake: 100ml rv 18:10 Drug: TORadol 30 mg Route: IVP; Site: right antecubital; rv 18:10 Follow up: Response: Medication administered at discharge. rv Intake: 16:45 IV: 1000ml; Total: 1000ml. rv 18:10 IV: 100ml; Total: 1100ml. rv Outcome: 17:20 Discharge ordered by . wa 18:11 Discharged to home ambulatory, with family. rv 18:11 Condition: improved 18:11 Discharge instructions given to patient, family, Instructed on discharge instructions, follow up and referral plans. medication usage, Demonstrated understanding of instructions, follow-up care, medications, Prescriptions given X 5 18:12 Patient left the ED. rv Signatures: Deirdre Edgar RN RN ss Nelly Huffman RN RN tw2 Ayana Rose am2 Surjit Munguia MD MD wa Vicente, Ronaldo, RN RN rv
--- NOTE | 2019-08-10 17:25 | EDPHYS ---
Physician Documentation [facility] Name: Yesenia Stephen Age: 43 yrs Sex: Female : 1975 Arrival Date: 08/10/2019 Time: 13:41 Bed 20 Private MD: Libby Wallace H ED Physician Surjit Munguia HPI: 08/10 15:24 This 43 yrs old Female presents to ER via Ambulatory with complaints of gi wa center for CT. 15:24 The patient presents with abdominal pain in the epigastric area. Onset: The wa symptoms/episode began/occurred yesterday. The symptoms do not radiate. Associated signs and symptoms: Pertinent positives: nausea, dizziness, Pertinent negatives: chest pain, constipation, diarrhea, dysuria, fever, palpitations, shortness of breath. The symptoms are described as sharp. Modifying factors: The symptoms are alleviated by nothing, the symptoms are aggravated by nothing. Severity of pain: At its worst the pain was severe in the emergency department the pain is unchanged. The patient has not experienced similar symptoms in the past. The patient has been recently seen by a physician: yesterday, in this ED. dx'd with acute pancreatitis. d/c'd home with f/u to G. states pain not improving. saw GI today. sent here for further eval. 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 - Social history:: Smoking status: . - Ebola Screening: : Patient denies travel to an Ebola-affected area in the 21 days before illness onset. ROS: 15:28 Constitutional: Negative for fever, chills, and weight loss, Eyes: Negative for injury, wa pain, redness, and discharge, ENT: Negative for injury, pain, and discharge, Neck: Negative for injury, pain, and swelling, Cardiovascular: Negative for chest pain, palpitations, and edema, Respiratory: Negative for shortness of breath, cough, wheezing, and pleuritic chest pain, Back: Negative for injury and pain, : Negative for injury, bleeding, discharge, and swelling, MS/Extremity: Negative for injury and deformity, Skin: Negative for injury, rash, and discoloration, Psych: Negative for depression, anxiety, suicide ideation, homicidal ideation, and hallucinations. 15:28 Abdomen/GI: Positive for abdominal pain, Negative for nausea, vomiting, and diarrhea. 15:28 Neuro: Positive for dizziness, Negative for altered mental status, headache. 15:28 All other systems are negative. Exam: 15:28 Constitutional: This is a well developed, well nourished patient who is awake, alert, wa and in no acute distress. Head/Face: Normocephalic, atraumatic. Eyes: Pupils equal round and reactive to light, extra-ocular motions intact. Lids and lashes normal. Conjunctiva and sclera are non-icteric and not injected. Cornea within normal limits. Periorbital areas with no swelling, redness, or edema. ENT: Nares patent. No nasal discharge, no septal abnormalities noted. Tympanic membranes are normal and external auditory canals are clear. Oropharynx with no redness, swelling, or masses, exudates, or evidence of obstruction, uvula midline. Mucous membranes moist. Neck: Trachea midline, no thyromegaly or masses palpated, and no cervical lymphadenopathy. Supple, full range of motion without nuchal rigidity, or vertebral point tenderness. No Meningismus. Chest/axilla: Normal chest wall appearance and motion. Nontender with no deformity. No lesions are appreciated. Cardiovascular: Regular rate and rhythm with a normal S1 and S2. No gallops, murmurs, or rubs. Normal PMI, no JVD. No pulse deficits. Respiratory: Lungs have equal breath sounds bilaterally, clear to auscultation and percussion. No rales, rhonchi or wheezes noted. No increased work of breathing, no retractions or nasal flaring. Back: No spinal tenderness. No costovertebral tenderness. Full range of motion. Skin: Warm, dry with normal turgor. Normal color with no rashes, no lesions, and no evidence of cellulitis. MS/ Extremity: Pulses equal, no cyanosis. Neurovascular intact. Full, normal range of motion. Neuro: Awake and alert, GCS 15, oriented to person, place, time, and situation. Cranial nerves II-XII grossly intact. Motor strength 5/5 in all extremities. Sensory grossly intact. Cerebellar exam normal. Normal gait. Psych: Awake, alert, with orientation to person, place and time. Behavior, mood, and affect are within normal limits. 15:28 Abdomen/GI: Inspection: abdomen appears normal, Bowel sounds: normal, in all quadrants, Palpation: soft, in all quadrants, moderate abdominal tenderness, in the epigastric area. Vital Signs: 13:59 BP 119 / 90; Pulse 74; Resp 18; Temp 99(TE); Pulse Ox 98% on R/A; Weight 67.59 kg; ss Height 5 ft. 0 in. (152.40 cm); Pain 10/10; 15:00 BP 109 / 81; Pulse 58; Resp 16; Pulse Ox 100% ; rv 15:36 BP 107 / 71; Pulse 64; Resp 17; Pulse Ox 98% ; rv 16:45 BP 121 / 71; Pulse 86; Resp 16; Pulse Ox 98% on R/A; rv 18:11 BP 124 / 74; Pulse 81; Resp 16; Pulse Ox 98% on R/A; rv 13:59 Body Mass Index 29.10 (67.59 kg, 152.40 cm) MDM: 14:34 Patient medically screened. ga 15:29 Differential diagnosis: seen and dx'd with elevated lipase, pancreatitis. will CT as ga this is pt's first episode. will control pain. will reassess. 16:55 Data reviewed: vital signs, nurses notes. Test interpretation: by ED physician or ga midlevel provider: lipase back into nml range. CT abd: no pancreatic abnml. noted enteritis picture however. . Response to treatment: the patient's symptoms have markedly improved after treatment. ED course: pt advised 3 loose BMs. will give abx. discussed with GI Dr. Angulo. pt will f/u with his office. 08/10 14:52 Order name: Basic Metabolic Panel ga 08/10 14:52 Order name: CBC with Diff ga 08/10 14:52 Order name: Hepatic Function ga 08/10 14:52 Order name: Lipase ga 08/10 14:52 Order name: Urine Microscopic Only ga 08/10 15:06 Order name: Urine Dipstick--Ancillary (enter results) 08/10 15:06 Order name: Urine --Ancillary (enter results) 08/10 15:13 Order name: CBC with Automated Diff; Complete Time: 16:50 EDMS 08/10 15:30 Order name: Basic Metabolic Panel; Complete Time: 16:50 EDMS 08/10 15:30 Order name: Liver (Hepatic) Function; Complete Time: 16:50 EDMS 08/10 15:30 Order name: Lipase; Complete Time: 16:51 EDMS 08/10 15:50 Order name: Urine Microscopic Only; Complete Time: 16:50 EDMS 08/10 15:50 Order name: Urine --Ancillary; Complete Time: 16:52 EDMS 08/10 15:50 Order name: Urine Dipstick-Ancillary; Complete Time: 16:52 EDMS 08/10 14:52 Order name: IV Saline Lock; Complete Time: 15:06 ga 08/10 14:52 Order name: Labs collected and sent; Complete Time: 15:06 ga 08/10 14:52 Order name: Urine Dipstick-Ancillary (obtain specimen); Complete Time: 15:06 ga 08/10 14:54 Order name: CT Abd/Pelvis - IV Contrast Only ga 08/10 15:44 Order name: CT; Complete Time: 16:51 EDMS 08/10 16:47 Order name: Manual Differential; Complete Time: 16:50 EDMS Administered Medications: 15:12 Drug: Pepcid 20 mg Route: IVP; Site: right antecubital; rv 16:45 Follow up: Response: No adverse reaction rv 15:13 Drug: Dilaudid 1 mg {Note: rass 0.} Route: IVP; Site: right antecubital; rv 16:46 Follow up: Response: No adverse reaction; Marked relief of symptoms; Pain is decreased; rv RASS: Alert and Calm (0) 15:30 Drug: Zofran 4 mg Route: IVP; Site: right antecubital; rv 16:46 Follow up: Response: No adverse reaction rv 15:30 Drug: NS 0.9% 1000 ml Route: IV; Rate: 1 bolus; Site: right antecubital; rv 16:45 Follow up: IV Status: Completed infusion; IV Intake: 1000ml rv 17:01 Drug: LevaQUIN 500 mg Route: PO; rv 18:10 Follow up: Response: No adverse reaction rv 17:02 Drug: Flagyl 500 mg Volume: 100 ml; Route: IVPB; Rate: 200 ml/hr; Infused Over: 30 rv mins; Site: right antecubital; 18:10 Follow up: IV Status: Completed infusion; IV Intake: 100ml rv 18:10 Drug: TORadol 30 mg Route: IVP; Site: right antecubital; rv 18:10 Follow up: Response: Medication administered at discharge. rv Disposition: 08/10/19 17:20 Discharged to Home. Impression: Acute Abdominal Pain, Acute Enteritis. - Condition is Stable. - Discharge Instructions: Abdominal Pain, Adult, [id number]. - Prescriptions for Zofran 4 mg Oral Tablet - take 1 tablet by ORAL route every 12 hours As needed; 20 tablet. Pepcid 20 mg Oral Tablet - take 1 tablet by ORAL route once daily for 10 days; 10 tablet. Whitmore 5- 325 mg Oral Tablet - take 1 tablet by ORAL route every 8 hours As needed; 15 tablet. Flagyl 500 mg Oral Tablet - take 1 tablet by ORAL route every 8 hours for 7 days; 21 tablet. Cipro 500 mg Oral Tablet - take 1 tablet by ORAL route every 12 hours for 7 days; 14 tablet. - Medication Reconciliation Form, Thank You Letter, Antibiotic Education, Prescription Opioid Use form. - Follow up: En Angulo MD; When: 1 - 2 days; Reason: Recheck today's complaints. - Problem is new. - Symptoms have improved. - Notes: follow up with Dr. Angulo as planned. return here immediately if worsening concerns Signatures: Dispatcher [employer] EDUT Deirdre Edgar RN RN ss Surjit Munguia MD MD wa Vicente, Ronaldo, RN RN rv Corrections: (The following items were deleted from the chart) 18:12 17:20 08/10/2019 17:20 Discharged to Home. Impression: Acute Abdominal Pain; Acute rv Enteritis. Condition is Stable. Forms are Medication Reconciliation Form, Thank You Letter, Antibiotic Education, Prescription Opioid Use. Follow up: En Angulo; When: 1 - 2 days; Reason: Recheck today's complaints. Problem is new. Symptoms have improved. wa
[2019-08-10 18:19] VITALS: TEMP 99
[2019-08-10 18:22] VITALS: O2SAT 98
[2019-08-10 18:24] VITALS: BP 124/74
== END 2019-08-10 18:12 | disposition home or self-care (01) ==
LOC: ER 13:37
DX: K52.9 Noninfective gastroenteritis and colitis, unspecified (principal); I10 Essential (primary) hypertension; Z87.442 Personal history of urinary calculi
CPT/HCPCS: 96365; 96361; 85025; 80048; 36415; 81025; 80076; 83690; 74177; 96375; 99284; Q9967; J1170; J7030; J2405; 81003; 81015

== ENCOUNTER 2025-03-31 22:09 | Observation (INO) | payer BC ==
--- OUTSIDE RECORDS SUMMARY | 2025-03-31 22:12 | XMS REPORT | Clinical Summary ---
Author Name Unknown Organization [facility] Address [address] [place] [address] Care Team Providers Care Skidder Driver Name Role Phone Libby Wallace MD Unavailable [phone] Arline Page MD Primary Care Prov ider Allergies Active Allergy Reactions Criticality Noted Date Comments Fluconazole Itching,Rash Low 09/30/2023 Valacyclovir Itching,Rash Low 09/30/2023 Medications lisinopril-hyd rochlorothiazi de (PRINZIDE,ZEST ORETIC) 20-12.5 mg per tablet 0 Active pantoprazole (PROTONIX) 40 mg EC tablet TK 1 T PO D 0 Active metFORMIN (GLUCOPHAGE-XR ) 500 mg 24 hr tablet TAKE ONE (1) TABLET(S) BY MOUTH ONCE A DAY WITH DINNER. 3 Active ergocalciferol (DRISDOL) 50,000 units capsule TAKE ONE (1) CAPSULE(S) BY MOUTH ONCE WEEKLY. 3 Active sertraline (ZOLOFT) 50 mg tablet TAKE ONE (1) TABLET(S) BY MOUTH ONCE A DAY. 3 Active carboxymethylc ellulose/citri c (PLENITY ORAL) Take 3 capsules by mouth twice daily. 3 Active venlafaxine 150 MG tr24 TAKE ONE (1) TABLET(S) BY MOUTH ONCE A DAY. Active Mounjaro 10 mg/0.5 mL injection INJECT 10 MG SUBCUTANEOUSLY WEEKLY. Active potassium citrate (UROCIT-K) 5 mEq SR tablet TAKE TWO (2) TABLET(S) BY MOUTH IN THE MORNING AND 1 TABLET IN THE EVENING WITH MEAL. Active Active Problems Problem Noted Date Diagnosed Date Fatty liver 08/25/2016 Hypertension Gastroesophageal reflux disease Encounters Date Type Department Care Team Description 11/11/2024 11:20 AM CDT Office Visit [facility] at [facility] [address] [address], [address] [place] [address] Ayana Canchola, MAGDIEL Encounter for other screening for malignant neoplasm of breast (Primary Dx) 11/11/2024 10:10 AM CDT Ancillary Procedure [facility] at [place] [id number] [place] [address], [address] [address] Ayana Canchola, MAGDIEL Encounter for other screening for malignant neoplasm of breast 11/11/2024 Travel 11/05/2024 Documentation Breast Imaging [address] [facility], [address]th [place] [address] Chevy Mason, RT after 03/31/2024 Immunizations Immunization Administration Dates Next Due Influenza, Unspecified 06/15/2019 Influenza, injectable, quadr ivalent, preservative free 06/15/2019 Pfizer SARS-CoV-2 Bivalent V accine 12+ y.o. (30 mcg/0.3 mL) 06/03/2022 Pfizer SARS-CoV-2 Vaccination (Purple Cap) 09/05,03/06/2021,02/13/2021 Surgical History Surgery Date Site/Laterality Comments APPENDECTOMY CHOLECYSTECTOMY SECTION, CLASSIC x 4 HYSTEROSCOPY COLONOSCOPY 08/25/2018 - 08/24/2019 EGD multiple COLONOSCOPY 08/25/2020 - 08/24/2021 Medical History Medical History Date Comments Hypertension Gastroesophageal reflux disease Cyst of breast 2017 Fatty liver 2016 Renal stone 1992 Squamous cell carcinoma in s itu of skin 08/09/2019 she is followed by a dermato logist outside [place] esophagus She is follo wed by a hospitality aide outside for this Family History Medical History Relation Name Comments Throat cancer Brother Geoff smoker and alc ohol use Stomach cancer Maternal Aunt Barbie Hernandez -Other cancer Other cousin Relation Name Status Comments Brother Geoff Maternal Aunt Barbie Hernandez Other cousin Social History Tobacco Use Types Packs/Day Years Used Date Smoking Tobacco: Former Cigarettes Q uit: 1994 Smokeless Tobacco: Never Tobacco Cessation:Counseling Given: Not Answered Comments:She reports that she has not smoked more than 100 cigarettes in her life time Alcohol Use Standard Drinks/Week Comments Never 0 (1 standard drink = 0.6 oz pur e alcohol) Comments No Sex and Gender Information Value Date Recorded Sex Assigned at Not on file 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 She denies any history of abnormal Pap smears in the past. Last Filed Vital Signs Vital Sign Reading Time Taken Comments Blood Pressure 110/80 11/11/2024 10:37 AM CDT Pulse 92 11/11/2024 10:37 AM CDT Temperature - - Respiratory Rate 18 11/11/2024 10:3 7 AM CDT Oxygen Saturation - - Inhaled Oxygen Concentration - - Weight 68.5 kg (151 lb 0.2 oz) 11/11/2024 10:37 AM CDT Intentional weight loss, Pt is taking Mounjaro Height 151 cm (4' 11.45") 11/11/2024 10 :37 AM CDT Body Mass Index 30.04 11/11/2024 10:37 AM CDT Plan of Treatment Upcoming Encounters Date Type Department Care Team (Late st Contact Info) Description 11/17/2025 10:10 AM CDT Ancillary Procedure [facility] Diagnostic Imaging at [employer] Building 1 [address] [facility] [address], [address] [place] [address] Ayana Canchola, MACHINE PACKER [address] [place] [address] [email or web address] 11/17/2025 11:20 AM CDT Office Visit [facility] at [facility] [address] [address] [address] [facility] [address] [place] [address] Ayana Canchola, MACHINE PACKER [address] [place], [place] [id number] [email or web address] Health Maintenance Due Date Last Done Comments Pneumococcal Vaccine: 50+ Ye ars ( - PCV) 2023 COVID-19 Vaccine (2023-2 5 season) 2024 06/03/2022, 09/05/2021, 03/06/2021, Additional history exists Influenza Vaccine (#1) 2025 06/15/2019, 2018 Procedures Procedure Name Priority Date/Time Associated Diagnosis Comments MAMMO DIGITAL SCREENING BILATERAL W LEROY Routine 11/11/2024 10:31 AM CDT Encounter for other screening for malignant neoplasm of breast after 03/31/2024 Results * Mammography Digital Screening Bilateral with Leroy (11/11/2024 10:31 AM CDT) Anatomical Region Laterality Modality Breast Bilateral Mammography Impressions 11/11/2024 11:05 AM CDT Bilateral There is no mammographic evidence of malignancy. Overall BI-RAD Category: 1 - Negative Recommend return to annual screening mammography, due on 10/2025. Narrative 11/11/2024 11:05 AM CDT CLINICAL INDICATION: Patient is a 49 y.o. female and is seen for screening. Mammography Digital Screening Bilateral with Leroy Computer-aided detection was utilized by the radiologist in the interpretation of this examination. Tomosynthesis was performed in CC and MLO projections. COMPARISON: The present examination has been compared to prior imaging studies performed : 10/20/2020 Mammography Digital Screening Bilateral with Leroy at [facility], 10/26/2021 Screening Mammogram w Leroy - Bilateral at [facility], 10/31/2021 Mammography Digital Screening Technical Repeat Right at [facility], 10/30/2022 Screening Mammogram w Leroy - Bilateral at [facility], 11/06/2023 Mammography Digital Screening Bilateral with Leroy at [facility] FINDINGS: There are scattered areas of fibroglandular density. Bilateral No dominant mass, architectural distortion, or suspicious calcifications are identified. Ayana Canchola MAGDIEL IM MAMMOGRAPHY ORDERABLE S Final Result after 03/31/2024 Insurance PPO POS [facility] PPO POS [facility] PPO POS Care Teams Skidder Driver Relationship Specialty Start Date End Date Libby Wallace MD [address] [place] [address] PCP - External Primary Care Provider Family Practice 10/12/19 Arline Page MD [address] [place] [id number] [email or web address] PCP - General Breast Surgery 10/13/19
[2025-03-31] MEDS ORDERED: NA CHLORIDE 0.9% 1,000 ML ONE (22:15)
[2025-03-31 23:10] LABS: Absolute Lymphocytes (CBC) 2.6 K/uL (0.7-4.9); Hematocrit 38.8 % (36.0-45.0); Hemoglobin 13.0 g/dL (12.0-15.0); MCH 31.0 pg (27.0-35.0); MCHC 33.4 g/dL (32.0-36.0); MCV 92.8 fL (80-100); MPV 8.1 fL (7.6-11.3); Nucleated RBC Absolute Count 0.0 (0-0); Nucleated Red Blood Cells % 0.1 % (0-0); RBC Red Blood Cell Count 4.18 M/uL (3.86-4.86); White Blood Count 9.00 thou/uL (4.3-10.9)
[2025-03-31 23:38] LABS: Anion Gap 13.5 mEq/L (5.0-15.0); BUN Blood Urea Nitrogen 11.0 mg/dL (7-18); Glucose Level 88.0 mg/dL (74-106); Magnesium 1.4 mg/dL (1.6-2.4); Troponin High Sensitivity 4.2 pg/mL (<58.9)
[2025-03-31 23:41] LABS: Potassium 2.5 mEq/L (3.5-5.1)
[2025-03-31] MEDS ORDERED: POTASSIUM CL SA 10 MEQ TAB PO ONE (23:56)
[2025-03-31] MEDS ORDERED: Magnesium Sulfate 2gm IVPB 2 G/50 ML BAG IV ONE (23:56)
--- NOTE | 2025-04-01 00:37 | ER ---
Nurse's Notes [facility] Name: Yesenia Stephen Age: 49 yrs Sex: Female : 1975 Arrival Date: 03/31/2025 Time: 22:09 Bed 18 Private MD: Diagnosis: Syncope;Hypokalemia;Hypomagnesemia;Constipation Presentation: 03/31 22:15 Chief complaint: EMS states: patient had a syncopal episode while in the rest room, she rg5 is been constipated for 4 days now and taken laxative to help her. Coronavirus screen: Client denies travel out of the [place] in the last 14 days. Ebola Screen: Patient negative for fever greater than or equal to 101.5 degrees Fahrenheit, and additional compatible Ebola Virus Disease symptoms Patient denies exposure to infectious person. Patient denies travel to an Ebola-affected area in the 21 days before illness onset. Initial Sepsis Screen: Does the patient meet any 2 criteria? No. Patient's initial sepsis screen is negative. Does the patient have a suspected source of infection? No. Patient's initial sepsis screen is negative. Risk Assessment: Do you want to hurt yourself or someone else? Patient reports no desire to harm self or others. Onset of symptoms was March 31, 2025. Care prior to arrival: Medication(s) given: Normal saline infusion, 800 droperidol 2.5mg IV IV initiated. 20 GA, in the left forearm, Glucose check: 100. Activity prior to arrival: unresponsive, syncope. 22:15 Method Of Arrival: EMS: [facility] rg5 22:15 Acuity: HANNAH 3 rg5 Triage Assessment: 22:15 General: Appears in no apparent distress. Behavior is calm, cooperative, appropriate rg5 for age. Pain: Denies pain. Neuro: Level of Consciousness is awake, alert, obeys commands, Oriented to person, place, time, situation, Reports a syncopal episode. Cardiovascular: Denies chest pain, Patient's skin is warm and dry. Rhythm is sinus rhythm. Respiratory: Airway is patent Respiratory effort is even, unlabored, Respiratory pattern is regular, symmetrical. GI: Abdomen is round non-distended, Bowel sounds present in left lower quadrant Reports constipation, cramping. : No signs and/or symptoms were reported regarding the genitourinary system. Derm: Skin is intact, Skin is dry, Skin is normal, Skin temperature is warm. Musculoskeletal: Circulation, motion, and sensation intact. Range of motion: intact in all extremities. 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 - Infectious Disease History:: Denies. - Social history:: Smoking status: Patient denies any tobacco usage or history of. Screenin:15 [facility] ED Fall Risk Assessment (Adult) History of falling in the last 3 months, rg5 including since admission No falls in past 3 months (0 pts) Confusion or Disorientation No (0 pts) Intoxicated or Sedated No (0 pts) Impaired Gait No (0 pts) Mobility Assist Device Used No (0 pt) Altered Elimination Yes (1 pt) Score/Fall Risk Level 0 - 2 = Low Risk Oriented to surroundings, Maintained a safe environment, Provided non-skid footwear. Abuse screen: Denies threats or abuse. Nutritional screening: No deficits noted. Tuberculosis screening: No symptoms or risk factors identified. Assessment: 22:39 Reassessment: Patient and/or family updated on plan of care and expected duration. Pain rg5 level reassessed. Patient is alert, oriented x 3, equal unlabored respirations, skin warm/dry/pink. Neuro: Reports a syncopal episode. 23:15 Reassessment: Patient appears in no apparent distress at this time. No changes from cp4 previously documented assessment. Patient and/or family updated on plan of care and expected duration. Pain level reassessed. Patient is alert, oriented x 3, equal unlabored respirations, skin warm/dry/pink. 23:15 Neuro: Level of Consciousness is awake, alert, obeys commands, Oriented to person, cp4 place, time, situation. Cardiovascular: Patient's skin is warm and dry. Rhythm is sinus rhythm. 04/01 00:15 Reassessment: Patient appears in no apparent distress at this time. Patient and/or cp4 family updated on plan of care and expected duration. Pain level reassessed. Patient is alert, oriented x 3, equal unlabored respirations, skin warm/dry/pink. 01:15 Reassessment: Patient appears in no apparent distress at this time. Patient and/or cp4 family updated on plan of care and expected duration. Pain level reassessed. Patient is alert, oriented x 3, equal unlabored respirations, skin warm/dry/pink. 02:10 Reassessment: Patient appears in no apparent distress at this time. Patient and/or cp4 family updated on plan of care and expected duration. Pain level reassessed. Patient is alert, oriented x 3, equal unlabored respirations, skin warm/dry/pink. Vital Signs: 03/31 22:15 BP 95 / 62; Pulse 95; Resp 18; Temp 98; Pulse Ox 98% on R/A; Weight 52.16 kg; Height 5 rg5 ft. 0 in. ; Pain 0/10; 23:39 BP 94 / 62; Pulse 99; Resp 18; Pulse Ox 99% ; cp4 04/01 01:00 BP 95 / 68; Pulse 94; Resp 18; Pulse Ox 96% ; cp4 02:00 BP 99 / 74; Pulse 95; Resp 17; Pulse Ox 98% ; cp4 03/31 22:15 Body Mass Index 22.46 (52.16 kg, 152.4 cm) rg5 03/31 22:15 Pain Scale: Adult rg5 ED Course: 03/31 22:10 Patient arrived in ED. rv1 22:15 Steve Camargo NP is PHCP. cr8 22:15 Armaan Xiong MD is Attending Physician. cr8 22:15 No provider procedures requiring assistance completed. Inserted saline lock: 20 gauge rg5 in left antecubital area, using aseptic technique. Blood collected. Flushed with 10 mL NS. Patient maintains SpO2 saturation greater than 95% on room air. 22:15 Arm band placed on. EKG completed in triage. Results shown to MD. rg5 22:15 Patient has correct armband on for positive identification. Bed in low position. Call rg5 light in reach. Side rails up X 1. Adult w/ patient. Door closed. Noise minimized. Warm blanket given. 22:21 Valerio Hobbs, RN is Primary Nurse. rg5 22:33 EKG done, by radiation protection technician. ts3 22:35 Triage completed. rg5 22:55 Initial lab(s) drawn, by lift slab operator, sent to lab. ts3 22:59 XRAY Chest (1 view) In Process Unspecified. EDMS 23:41 Notified Nurse Practitioner and/or Physician Piping Engineer of a critical lab result(s), vc1 Potassium 2.5. 04/01 00:35 Reagan Diaz MD is Hospitalizing Provider. cr8 03:21 Patient admitted, IV remains in place. cp4 03:21 Provided Education on: admission. cp4 Administered Medications: 03/31 22:25 Drug: NS 0.9% IV 1000 ml IV at 1000 ml once; to be given as a bolus over 60 minutes rg5 Route: IV; Rate: 1000 ml; Site: left forearm; 04/01 03:23 Follow up: Response: No adverse reaction cp4 00:02 Drug: Potassium Chloride PO 40 mEq PO once Route: PO; cp4 02:08 Follow up: Response: No adverse reaction cp4 00:02 Drug: Magnesium Sulfate IVPB 2 grams IVPB once over 1 hrs Route: IVPB; Infused Over: 1 cp4 hrs; Site: left forearm; 02:08 Follow up: IV Status: Completed infusion cp4 Medication: 03/31 22:25 VIS not applicable for this client. rg5 Point of Care Testing: Blood Glucose: 22:15 Blood Glucose: 100 mg/dL; rg5 Ranges: Outcome: 04/01 00:37 Decision to Hospitalize by Provider. cr8 03:21 Admitted to Med/surg accompanied by tech, via wheelchair, room 211, with chart, cp4 03:21 Condition: stable 03:21 Instructed on the need for admit, 03:36 Patient left the ED. cp4 Signatures: Dispatcher [employer] EDMS Sherine Mathews, RN RN vc1 Courtney Freitas Christina cp4 Valerio Hobbs RN RN rg5 Steve Camargo NP CLIENT ADMINISTRATOR cr8 Tamra Vyas ts3
--- NOTE | 2025-04-01 00:37 | EDPHYS ---
Physician Documentation [facility] Name: Yesenia Stephen Age: 49 yrs Sex: Female : 1975 Arrival Date: 03/31/2025 Time: 22:09 Bed 18 Private MD: ED Physician Armaan Xiong HPI: 03/31 22:39 This 49 yrs old Female presents to ER via EMS with complaints of Syncope, cr8 Constipation. 22:39 Patient is a 49-year-old female history hypertension pancreatitis kidney stones that cr8 comes in emergency room after a syncopal episode. states that she has been constipated. Reports she took Ex-Lax this evening. She made several trips to the restroom to have a bowel movement. The last time she went she went unresponsive. Lasted less than a minute. There was no seizure-like activity loss of bladder or bowel control. She did vomit soon after that. EMS reports that her blood pressure was low initially. They gave droperidol for abdominal pain. On presentation emergency room she is back to baseline. She denies having any chest pain during the episode or afterwards. She has had no recent shortness of breath. She has been afebrile without any other vomiting or diarrhea.. 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 - Infectious Disease History:: Denies. - Social history:: Smoking status: Patient denies any tobacco usage or history of. ROS: 22:39 Constitutional: as per HPI cr8 Exam: 22:39 Constitutional: This is a well developed, well nourished patient who is awake, alert, cr8 and in no acute distress. Head/Face: Normocephalic, atraumatic. Cardiovascular: Regular rate and rhythm with a normal S1 and S2. No gallops, murmurs, or rubs. Respiratory: Lungs have equal breath sounds bilaterally, clear to auscultation. No rales, rhonchi or wheezes noted. No increased work of breathing. Abdomen/GI: Soft, non-tender, with normal bowel sounds. No distension. No guarding or rebound. Skin: Warm, dry with normal turgor. Normal color with no rashes, no lesions, and no evidence of cellulitis. MS/ Extremity: Pulses equal, no cyanosis. Neurovascular intact. Full, normal range of motion. Neuro: Awake and alert, GCS 15, oriented to person, place, time, and situation. Cranial nerves II-XII grossly intact. Motor strength 5/5 in all extremities. Sensory grossly intact. 22:45 Special observations: no evidence of discomfort, Patient ambulated to the restroom. cr8 Reports she had a bowel movement. Afterwards she was able to ambulate back to the room. She denied that she had any dizziness lightheaded . Denies having any chest pain or dyspnea during this event. , 22:54 ECG was reviewed by the Attending Physician. cr8 23:51 Special observations: Reexamined patient. She is not have any chest pain. cr8 Neurologically intact. Abdomen is soft tender on palpation there is no distention. Discussed results and treatment plan., Vital Signs: 22:15 BP 95 / 62; Pulse 95; Resp 18; Temp 98; Pulse Ox 98% on R/A; Weight 52.16 kg; Height 5 rg5 ft. 0 in. ; Pain 0/10; 23:39 BP 94 / 62; Pulse 99; Resp 18; Pulse Ox 99% ; cp4 04/01 01:00 BP 95 / 68; Pulse 94; Resp 18; Pulse Ox 96% ; cp4 02:00 BP 99 / 74; Pulse 95; Resp 17; Pulse Ox 98% ; cp4 03/31 22:15 Body Mass Index 22.46 (52.16 kg, 152.4 cm) 5 03/31 22:15 Pain Scale: Adult rg5 MDM: 03/31 22:17 Medical Screening Exam initiated cr8 23:51 Data reviewed: vital signs, nurses notes, lab test result(s), cardiac enzymes, troponin cr8 i, CBC, electrolytes, EKG, radiologic studies, plain films. Consideration of Admission/Observation Patient was admitted/placed on observation. 23:54 ECG was reviewed by the Attending Physician. Historians other than the Patient: crJillian Spouse/Significant Other: . Counseling: I had a detailed discussion with the patient and/or guardian regarding the historical points, exam findings, and any diagnostic results supporting the discharge/admit diagnosis, lab results, the need for further work-up and treatment in the hospital. ED course: Patient was brought for syncopal episode. Patient has what sounds like a vasovagal episode. She went to the restroom because she was constipated and reports from the states that she went unresponsive for about a minute. EMS arrived on scene and she was hypotensive. Discussed with the the findings. He reports that she has not been eating very much because she is on his appetite. Reports that she takes potassium pills at home twice a day. She is on lisinopril with hydrochlorothiazide, amlodipine and Effexor.. 04/01 00:34 Management of patient was discussed with the following: Hospitalist: Discussed cr8 patient's presentation assessment and workup. Discussed due to lab findings of potassium at 2.5, magnesium of 1.4. Discussed that her abdominal exam was unremarkable. Discussed vital signs and treatment we have given. He excepted patient observation.. 03/31 22:18 Order name: Basic Metabolic Panel; Complete Time: 23:41 cr8 03/31 22:18 Order name: CBC with Diff; Complete Time: 23:19 cr8 03/31 22:18 Order name: Troponin HS; Complete Time: 23:41 cr8 03/31 22:18 Order name: ETOH Level; Complete Time: 23:29 cr8 03/31 22:59 Order name: Magnesium; Complete Time: 23:41 EDTX 04/01 00:51 Order name: Thyroid Stimulating Hormone EDTX 04/01 00:51 Order name: Comprehensive Metabolic Panel EDTX 04/01 00:51 Order name: Comprehensive Metabolic Panel EDTX 04/01 00:51 Order name: Comprehensive Metabolic Panel EDTX 04/01 00:51 Order name: Comprehensive Metabolic Panel EDMS 04/01 00:51 Order name: Comprehensive Metabolic Panel EDMS 04/01 00:51 Order name: Comprehensive Metabolic Panel EDMS 04/01 00:51 Order name: Lipid Profile EDMS 04/01 00:51 Order name: Lipid Profile EDMS 04/01 00:51 Order name: Magnesium EDMS 04/01 00:51 Order name: Magnesium EDMS 04/01 00:51 Order name: Magnesium EDMS 04/01 00:51 Order name: Magnesium EDMS 04/01 00:51 Order name: Troponin High Sensitivity EDMS 04/01 00:51 Order name: Troponin High Sensitivity EDMS 04/01 00:51 Order name: Troponin High Sensitivity EDTX 04/01 00:51 Order name: UA W/Microscopic EDTX 03/31 22:18 Order name: XRAY Chest (1 view) cr8 03/31 22:18 Order name: EKG; Complete Time: 22:19 cr8 04/01 00:51 Order name: CONS Physician Consult EDTX 03/31 22:18 Order name: Cardiac monitoring; Complete Time: 22:25 cr8 03/31 22:18 Order name: EKG - Nurse/Tech; Complete Time: 22:33 cr8 03/31 22:18 Order name: IV Saline Lock; Complete Time: 22:25 cr8 03/31 22:18 Order name: O2 Per Protocol; Complete Time: 22:25 cr8 03/31 22:18 Order name: O2 Sat Monitoring; Complete Time: 22:25 cr8 EC/07 22:54 Rate is 95 beats/min. Rhythm is regular. QRS Eugene is Normal. NE interval is normal. QRS cr8 interval is normal. QT interval is prolonged at 502 msec. No Q waves. T waves are Normal. No ST changes noted. Clinical impression: No evidence of ischemia and No ST elevation. QTc 502. . Interpreted by me. Administered Medications: 22:25 Drug: NS 0.9% IV 1000 ml IV at 1000 ml once; to be given as a bolus over 60 minutes rg5 Route: IV; Rate: 1000 ml; Site: left forearm; 04/01 03:23 Follow up: Response: No adverse reaction cp4 00:02 Drug: Potassium Chloride PO 40 mEq PO once Route: PO; cp4 02:08 Follow up: Response: No adverse reaction cp4 00:02 Drug: Magnesium Sulfate IVPB 2 grams IVPB once over 1 hrs Route: IVPB; Infused Over: 1 cp4 hrs; Site: left forearm; 02:08 Follow up: IV Status: Completed infusion cp4 Point of Care Testing: Blood Glucose: 03/31 22:15 Blood Glucose: 100 mg/dL; rg5 Ranges: Critical Glucose Levels:Adult <50 mg/dl or >400 mg/dl <40 mg/dl or >180 mg/dl Disposition: 04/01 19:32 Co-signature as Attending Physician, Armaan Xiong MD I agree with the assessment sp4 and plan of care. I reviewed the patient's care provided by the Advanced Practice Provider and agree with the diagnosis and treatment plan. Disposition Summary: 04/01/25 00:37 Hospitalization Ordered Notes: Hospitalization Status: Observation cr8 Provider: Reagan Diaz Location: Telemetry/MedSurg (observation) cr8 Condition: Stable cr8 Problem: new cr8 Symptoms: are unchanged cr8 Bed/Room Type: Standard cr8 Room Assignment: 211(04/01/25 02:54) rv1 Diagnosis - Syncope cr8 - Hypokalemia cr8 - Hypomagnesemia cr8 - Constipation cr8 Forms: - Medication Reconciliation Form cr8 - SBAR form cr8 - Leadership Thank You Letter cr8 Signatures: Dispatcher [employer] [facility] Courtney Freitas rv1 Armaan Xiong MD MD sp4 Abi Lim cp4 Valerio Hobbs RN RN rg5 Steve Camargo, JO ANN CONTRACT OFFICER cr8 Corrections: (The following items were deleted from the chart) 03/31 22:57 22:54 MAGNESIUM+C.LAB.BRZ ordered. [facility] 04/01 02:54 00:37 cr8 rv1
--- NOTE | 2025-04-01 00:41 | P.HP ---
Certification for Inpatient Patient admitted to: Observation With expected LOS: <2 Midnights Patient will require the following post-hospital care: None Practitioner: I am a practitioner with admitting privileges, knowledge of patient current condition, hospital course, and medical plan of care. Services: Services provided to patient in accordance with Admission requirements found in Title 42 Section 412.3 of the Code of Federal Regulations Patient History Date of Service: 04/01/25 Reason for admission: Syncope History of Present Illness: 49-year-old female with past medical history of HTN, kidney stones, recently started on Mounjaro, history of recurrent abdominal cramps who presented to the ED today after having constipation for the last 5 days and has taken laxative today. She has 2 bowel movement on return from the second 1 she said suddenly weak and has dropped to the ground. She admitted to transient loss of consciousness. She denies any head injury. On arrival in the ED she was noted with low blood pressure with systolic in the upper 80s over 40s. Laboratory workup showed low potassium of 2.5. Creatinine was normal. Bicarb was low at 20. CBC was unremarkable. Urinalysis pending. Alcohol level was elevated at 30. She was given IV fluid boluses. Repeat blood pressure in the 90s over 40s now Allergies No Known Drug Allergies Allergy (Unverified 12/13/16 05:45) Unknown NKDA Allergy (Uncoded 07/28/15 14:31) Unknown No Known Allergies Allergy (Uncoded 12/20/15 19:37) Unknown No Known Drug Allerg Allergy (Uncoded 03/21/16 19:55) Unknown Home Medications: Lisinopril/Hydrochlorothiazide [Zestoretic 20-12.5 mg Tablet] 1 each PO DAILY 10/24/14 - Past Medical/Surgical History -: Hypertension -: Kidney stones Past Surgical History: Reviewed- Non-Contributory - Family History Family History: Reviewed- Non-Contributory - Social History Smoking Status: Never smoker Smoking therapy provided: No Patient receptive to therapy: No Alcohol use: Yes CD- Drugs: No Caffeine use: Yes Review of Systems General: Weakness, Malaise Gastrointestinal: Diarrhea, Constipation Physical Examination - Physical Exam General: Alert, In no apparent distress, Oriented x3, Cooperative HEENT: Atraumatic, Normocephalic, PERRLA Neck: 2+ carotid pulse no bruit, JVD not distended Respiratory: Clear to auscultation bilaterally, Normal air movement Cardiovascular: Normal pulses, Regular rate/rhythm, Normal S1 S2 Capillary refill: <2 Seconds Gastrointestinal: Normal bowel sounds, Soft and benign, Non-distended, No ascites, No tenderness Musculoskeletal: No clubbing, No swelling Integumentary: No breakdown, No significant lesion Neurological: Normal speech, Normal strength at 5/5 x4 extr, Normal tone, Sensation intact, Cranial nerves 3-12 intact - Studies Laboratory Data (last 24 hrs) 03/31/25 03/31/25 03/31/25 22:54 22:52 22:52 WBC 9.00 Hgb 13.0 Hct 38.8 Plt Count 263 Sodium 141 Potassium 2.5 L* BUN 11 Creatinine 0.48 L Glucose 88 Magnesium Cancelled 1.4 L Assessment and Plan - Plan Impression Syncopelikely due to vasovagal/volume depletion Hypertension Hypokalemia Hypomagnesemia History of Mounjaro use Alcohol abuse Plan Will admit patient to observation Obtain head CT to rule out intracranial pathology Place in telemetry Continue magnesium repletion Replace potassium Start normal saline with KCl Alcohol cessation advised Monitor for loose stools, if recurrent may need CT of the abdomen Subcutaneous Lovenox for DVT prophylaxis Hold HCTZ and lisinopril for now - Advance Directives Does patient have a Living Will: No Does patient have a Durable POA for Healthcare: No
[2025-04-01] MEDS ORDERED: ONDANSETRON 4 MG/2 ML VIAL IV PRN (00:42)
[2025-04-01] MEDS ORDERED: MORPHINE 2 MG/ML SYR IV PRN (00:42)
[2025-04-01] MEDS ORDERED: ALBUTEROL 2.5 MG/3 ML NEB SOL NEB PRN (00:42)
[2025-04-01] MEDS ORDERED: HYDRALAZINE HCL 20 MG/ML VIAL IV PRN (00:44)
[2025-04-01] MEDS ORDERED: LORazepam 2 MG/ML VIAL IV PRN (00:45)
[2025-04-01] MEDS: D5 0.9 NS 1,000 ML with POTASSIUM CL 40 MEQ IV SCH (01:00)
[2025-04-01] MEDS: D5NS KCL 20MEQ 20 MEQ/1,000 ML BAG IV SCH (03:00)
[2025-04-01 03:45] VITALS: O2SAT 98
[2025-04-01 05:32] LABS: Urine Micro Reflex YN NO BILL MICROSCOPIC
--- NOTE | 2025-04-01 05:59 | RAD REPORT ---
EXAM: XR Chest, 1 View CLINICAL HISTORY: The patient is 49 years old and is Female; syncope TECHNIQUE: Frontal view of the chest. COMPARISON: No relevant prior studies available. FINDINGS: LUNGS: Unremarkable. No consolidation. PLEURAL SPACE: Unremarkable. No pneumothorax. HEART: Unremarkable. No cardiomegaly. MEDIASTINUM: Unremarkable. Normal mediastinal contour. BONES/JOINTS: Unremarkable. No acute fracture. UPPER ABDOMEN: Unremarkable as visualized. IMPRESSION: No acute cardiopulmonary process. Electronically signed by: Noreen Erickson MD 03/31/2025 11:41 PM CDT RP Due to temporary technical issues with the PACS/MEEP reporting system, reports are being divina d by the in-house radiologist without review as a courtesy to ensure prompt reporting the interpreting radiologist is fully responsible for the content of the report. Transcribed Date/Time: 04/01/2025 5:59 AM
[2025-04-01 06:47] LABS: ALT/SGPT 18.0 U/L (13-56); AST/SGOT 15.0 U/L (15-37); Albumin 3.3 g/dL (3.4-5.0); Albumin/Globulin Ratio 1.2 (1.1-1.8); Alkaline Phosphatase 81.0 U/L (45-117); Anion Gap 7.1 mEq/L (5.0-15.0); BUN Blood Urea Nitrogen 10.0 mg/dL (7-18); Globulin 2.7 g/dL (2.3-3.5); Glucose Level 120.0 mg/dL (74-106); Magnesium 2.0 mg/dL (1.6-2.4); Potassium 4.1 mEq/L (3.5-5.1); Thyroid Stimulating Hormone 1.37 uIU/mL (0.358-3.740)
--- NOTE | 2025-04-01 07:05 | RAD REPORT ---
EXAM: CT Head Without Intravenous Contrast CLINICAL HISTORY: The patient is 49 years old and is Female; syncope TECHNIQUE: Axial computed tomography images of the head/brain without intravenous contrast. Sagit yaz and coronal reformatted images were created and reviewed. This CT exam was performed using one or more of the following dose reduction techniques: automated exposure control, adjustment of t he mA and/or kV according to patient size, and/or use of iterative reconstruction technique. COMPARISON: No relevant prior studies available. FINDINGS: Brain: Unremarkable. No hemorrhage. No significant white matter disease. No edema. Ventricles: Unremarkable. No ventriculomegaly. Bones/joints: Unremarkable. No acute fracture. Soft tissues: Unremarkable. Sinuses: Unremarkable as visualized. Mastoid air cells: Unremarkable as visualized. No mastoid effusion. IMPRESSION: No acute intracranial abnormality. Electronically signed by: Terrence Robertson MD 04/01/2025 07:01 AM CDT 8 Due to temporary technical issues with the PACS/[employer] reporting system, reports are being divina d by the in-house radiologist without review as a courtesy to ensure prompt reporting the interpreting radiologist is fully responsible for the content of the report. Transcribed Date/Time: 04/01/2025 7:05 AM
[2025-04-01] MEDS: FOLIC ACID 1 MG, MULTIVITAMINS INJ 10 ML, THIAMINE HCL 100 MG in NA CHLORIDE 0.9% 1,000 ML IV SCH (08:55)
[2025-04-01] MEDS: FAMOTIDINE 20 MG TAB PO SCH (08:55)
[2025-04-01] MEDS: VENLAFAXINE HCL XR 75 MG CAP PO SCH (08:56)
[2025-04-01] MEDS: METFORMIN ER 500 MG TAB PO SCH (08:56)
--- NOTE | 2025-04-01 09:39 | P.PN ---
Date of Service: 04/01/25 Subjective: feeling constipated attempted to have a bowel movement but her describes her body tensing up almost like a seizure Her is concerned because he doesn't feel like this episode is due to passing out slightly tachycardic, BP low-normal has been taking mounjaro for ~2 months now Physical Exam: Gen: Alert, NAD, Orientedx3 CV: Regular rate and rhythm, no edema Pulm: Nonlabored respirations on room air, clear bilaterally Abdomen: Soft, nontender, nondistended Neuro: Normal strength, normal affect Problem List: Syncope Constipation Alcohol abuse Fatty liver Hypokalemia NIDDM2 Hypertension GERD Hx of kidney stones Syncope Constipation Had syncopal episode after going to bathroom. Lasted <1 min. No seizure like activity. Prior to episode, she had been feeling constipated. Patient had taken ex-lax and had multiple trips to bathroom. Reportedly vomiting soon after episode and EMS reports low BP initially possibly secondary to vasovagal/volume depletion BP initially in 90s on ER arrival CT head negative, CXR negative. UA not suggestive of UTI Alcohol abuse Fatty liver continue folic acid, thiamine, multivitamin PRN ativan for withdrawal Monitor for withdrawal Alcohol cessation advised. Hypokalemia Monitor and replete electrolytes as needed Monitor on telemetry Nephrology consulted NIDDM2 accu-cheks, SSI confirm home meds. Reportedly recently started on mounjaro Hypertension Hold home antihypertensives for now given low BP. Monitor BP closely. GERD Pepcid BID VTE: Code: Full Dispo: Home
[2025-04-01] MEDS ORDERED: D10W 125 ML IV PRN (16:16)
[2025-04-01] MEDS ORDERED: GLUCAGON 1 MG/VIAL IM PRN (16:16)
[2025-04-01] MEDS: INSULIN REGULAR (HUMAN) 100 UNIT/ML SQ SCH (16:30)
--- NOTE | 2025-04-01 19:28 | CON ---
Date of Consultation: 04/01/2025 Reason For Chief Complaint: Weakness, syncope. Reason For Consultation: Hypokalemia. History Of Present Illness: This is a -[id number] woman with past medical history of nephrol ithiasis; chronic hypokalemia, on potassium supplementation; hypertension. The patient was admitted for abdominal pain and cramps. She was recently started on Mounjaro. Upon presentation to the ER, p otassium was 2.5. The patient stated level was elevated to 30. The patient stated she is taking potassium supplementation 3 pills daily. Allergies: NO KNOWN DRUG ALLERGIES. Home Medications: Lisinopril, hydrochlorothiazide. Past Medical History: Hypertension, kidney stones. Past Surgical History: None documented. Family History: Noncontributory. Social History: Drinks alcohol. Review of Systems: Positive for malaise, weakness, diarrhea. Physical Examination: Vital Signs: Temperature 98.3, pulse rate 90, blood pressure 108/70. General: Awake, alert, oriented x3, not in distress. Neck: Supple. No elevated JVD. Heart: Regular rate and rhythm. Normal S1, S2. Chest: Clear to auscultation bilaterally. No rales or wheezes. Abdomen: Soft, nontender. Extremities: No edema. Laboratory Data: Sodium 139, potassium improved to 4.1 from 2.5, BUN 10, creatinine is 0.65. TSH 1. 3. Magnesium 2. Assessment And Plan: 1. Chronic hypokalemia, possibly due to poor oral intake and hypomagnesemia. We will start daily pot assium supplementation. We will replace magnesium. 2. Hypomagnesemia. Start daily supplementation. 3. Alcohol toxicity. Continue banana bag. We will discontinue IV fluid. 4. Hypertension. Blood pressure is controlled. Continue to hold lisinopril, hydrochlorothiazide. 5. Diabetes mellitus. Continue metformin. Thank you for allowing me to participate in patient's care. Total time spent 55 minutes including do cumentation, reviewing labs, and placing orders. AA/MODL Voice ID: [id number] Report ID: [id number]
[2025-04-01] MEDS: POTASSIUM 25 MEQ EFFERV TAB PO SCH (20:49)
[2025-04-02 06:42] LABS: ALT/SGPT 18.0 U/L (13-56); AST/SGOT 14.0 U/L (15-37); Albumin 2.9 g/dL (3.4-5.0); Albumin/Globulin Ratio 1.2 (1.1-1.8); Alkaline Phosphatase 69.0 U/L (45-117); Anion Gap 6.5 mEq/L (5.0-15.0); BUN Blood Urea Nitrogen 6.0 mg/dL (7-18); Globulin 2.5 g/dL (2.3-3.5); Glucose Level 83.0 mg/dL (74-106); HDL Cholesterol 45.0 mg/dL (40-60); LDL Cholesterol, Calculated 67.0 mg/dL (<130); LDL Cholesterol,Calc NonReport 67.0; Magnesium 1.6 mg/dL (1.6-2.4); Potassium 3.5 mEq/L (3.5-5.1)
[2025-04-02 06:49] VITALS: BMI 27.8
--- NOTE | 2025-04-02 07:38 | P.PN ---
Date of Service: 04/02/25 Subjective: Seen ambulating around the room. She feels much better today. She wants to go home. Her is at bedside and he has been updated. Vitals remained stable over night. No seizure-like episodes. Physical Exam: Gen: Alert, NAD, Orientedx3 CV: Regular rate and rhythm, no edema Pulm: Nonlabored respirations on room air, clear bilaterally Abdomen: Soft, nontender, nondistended Neuro: Normal strength, normal affect Problem List: Syncope Constipation Alcohol abuse Fatty liver Hypokalemia NIDDM2 Hypertension GERD Hx of kidney stones Syncope Constipation Had syncopal episode after going to bathroom. Lasted <1 min. No seizure like activity. Prior to episode, she had been feeling constipated. Patient had taken ex-lax and had multiple trips to bathroom. Reportedly vomiting soon after episode and EMS reports low BP initially possibly secondary to vasovagal/volume depletion BP initially in 90s on ER arrival CT head negative, CXR negative. UA not suggestive of UTI Alcohol abuse Fatty liver continue folic acid, thiamine, multivitamin PRN ativan for withdrawal Monitor for withdrawal Alcohol cessation advised. Hypokalemia Monitor and replete electrolytes as needed Monitor on telemetry Nephrology starting potassium and magnesium supplementation Hold HCTZ and lisinopril NIDDM2 accu-cheks, SSI confirm home meds. Reportedly recently started on mounjaro Hypertension Hold home antihypertensives for now given low BP. Monitor BP closely. FRANCISCO Bush BID VTE: Code: Full Dispo: Home and follow-up with PCP. Stop Mounjaro
[2025-04-02] MEDS: MAGNESIUM OXIDE 400 MG TAB PO SCH (09:00)
[2025-04-02] MEDS ORDERED: HOME MED 1 EA UNK (Lisinopril/Hydrochlorothiazide [Zestoretic 20-12.5 Mg Tablet] Tablet) PO SCH (09:00)
[2025-04-02 12:03] VITALS: BP 119/69; TEMP 98.3
--- NOTE | 2025-04-02 13:15 | P.DS ---
Admission Date: 04/01/25 Discharge Date: 04/02/25 Disposition: ROUTINE DISCHARGE Discharge Condition: GOOD Reason for Admission: Syncope Brief History of Present Illness: 49-year-old female with past medical history of HTN, kidney stones, recently started on Mounjaro, history of recurrent abdominal cramps who presented to the ED today after having constipation for the last 5 days and has taken laxative today. She has 2 bowel movement on return from the second 1 she said suddenly weak and has dropped to the ground. She admitted to transient loss of consciousness. She denies any head injury. On arrival in the ED she was noted with low blood pressure with systolic in the upper 80s over 40s. Laboratory workup showed low potassium of 2.5. Creatinine was normal. Bicarb was low at 20. CBC was unremarkable. Urinalysis pending. Alcohol level was elevated at 30. She was given IV fluid boluses. Repeat blood pressure in the 90s over 40s now. CT of the head did not show any acute abnormalities. Upon admission she was started on a banana bag, placed on multivitamins, and managed with conservative care. Her hypokalemia improved with repletion. Her clinical condition improved over the course of her stay. She had no more syncopal or seizure-like episodes. She has been advised not to take Mounjaro with alcohol. She will follow-up with her PCP upon discharge. She is medically optimized for discharge Hospital Course: Physical Exam: Gen: Alert, NAD, Orientedx3 CV: Regular rate and rhythm, no edema Pulm: Nonlabored respirations on room air, clear bilaterally Abdomen: Soft, nontender, nondistended Neuro: Normal strength, normal affect Problem List: Syncope Constipation Alcohol abuse Fatty liver Hypokalemia NIDDM2 Hypertension GERD Hx of kidney stones Syncope Constipation Had syncopal episode after going to bathroom. Lasted <1 min. No seizure like activity. Prior to episode, she had been feeling constipated. Patient had taken ex-lax and had multiple trips to bathroom. Reportedly vomiting soon after episode and EMS reports low BP initially possibly secondary to vasovagal/volume depletion BP initially in 90s on ER arrival CT head negative, CXR negative. UA not suggestive of UTI Alcohol abuse Fatty liver continue folic acid, thiamine, multivitamin PRN ativan for withdrawal Monitor for withdrawal Alcohol cessation advised. Hypokalemia Monitor and replete electrolytes as needed Monitor on telemetry Nephrology starting potassium and magnesium supplementation Hold HCTZ and lisinopril NIDDM2 accu-cheks, SSI confirm home meds. Reportedly recently started on mounjaro Hypertension Hold home antihypertensives for now given low BP. Monitor BP closely. FRANCISCO Bush BID VTE: Code: Full Dispo: Home and follow-up with PCP. Stop Mikey Vital Signs/Physical Exam: Temp Pulse Resp BP Pulse Ox 98.3 F 71 20 119/69 96 04/02/25 12:00 04/02/25 12:00 04/02/25 12:00 04/02/25 12:00 04/02/25 12:00 Laboratory Data at Discharge: WBC 9.00 thou/uL (4.3-10.9) 03/31/25 22:52 Hgb 13.0 g/dL (12.0-15.0) 03/31/25 22:52 Hct 38.8 % (36.0-45.0) 03/31/25 22:52 Plt Count 263 thou/uL (152-406) 03/31/25 22:52 Sodium 139 mEq/L (136-145) 04/02/25 05:35 Potassium 3.5 mEq/L (3.5-5.1) D 04/02/25 05:35 BUN 6 mg/dL (7-18) L 04/02/25 05:35 Creatinine 0.52 mg/dL (0.55-1.02) L 04/02/25 05:35 Glucose 83 mg/dL (74-106) 04/02/25 05:35 Magnesium 1.6 mg/dL (1.6-2.4) 04/02/25 05:35 Total Bilirubin 0.4 mg/dL (0.2-1.0) 04/02/25 05:35 AST 14 U/L (15-37) L 04/02/25 05:35 ALT 18 U/L (13-56) 04/02/25 05:35 Alkaline Phosphatase 69 U/L (45-117) 04/02/25 05:35 Triglycerides 75 mg/dL (<150) 04/02/25 05:35 Cholesterol 127 mg/dL (<200) 04/02/25 05:35 HDL Cholesterol 45 mg/dL (40-60) 04/02/25 05:35 Cholesterol/HDL Ratio 2.82 04/02/25 05:35 Home Medications: Lisinopril/Hydrochlorothiazide [Zestoretic 20-12.5 mg Tablet] 1 each PO DAILY 10/24/14 Metformin ER [Glucophage ER*] 500 mg PO DAILY 04/01/25 Venlafaxine HCl [Effexor Xr] 37.5 mg PO DAILY 04/01/25 Venlafaxine HCl [Venlafaxine HCl ER] 1 tab PO DAILY 04/01/25 Diet: Regular Followup: Libby Wallace DO, DO [Primary Care Provider] -
== END 2025-04-02 14:06 | disposition home or self-care (01) ==
LOC: ER 22:09 → ERHOLD 04-01 00:42 → 2ND 04-01 02:59
PROVIDERS: ADMIT Internal Medicine; ATTEND Family Medicine
DX: R55 Syncope and collapse (principal); F10.129 Alcohol abuse with intoxication, unspecified; K59.00 Constipation, unspecified; K76.0 Fatty (change of) liver, not elsewhere classified; I10 Essential (primary) hypertension; N20.0 Calculus of kidney; E11.9 Type 2 diabetes mellitus without complications; E87.6 Hypokalemia; E83.42 Hypomagnesemia; F10.10 Alcohol abuse, uncomplicated; R10.9 Unspecified abdominal pain; K21.9 Gastro-esophageal reflux disease without esophagitis; Y90.1 Blood alcohol level of 20-39 mg/100 ml; Z79.85 Long-term (current) use of injectable non-insulin antidiabetic drugs; K85.90 Acute pancreatitis without necrosis or infection, unspecified
CPT/HCPCS: 96365; 93005; 85025; 81001; 80048; 36415 ×3; 83735 ×3; 80061; 82947 ×4; 84443; 84484 ×3; 80053 ×2; 84145; 70450; 71045; 99285; 96366; 82077; J3411; J3475; J7030 ×2; J3480; G0378; J7042

== ENCOUNTER 2025-06-02 06:26 | Day surgery (SDC) | payer BC ==
[2025-05-30 13:53] LABS: Absolute Lymphocytes (CBC) 3.3 K/uL (0.7-4.9); Hematocrit 39.8 % (36.0-45.0); Hemoglobin 13.1 g/dL (12.0-15.0); MCH 30.5 pg (27.0-35.0); MCHC 32.8 g/dL (32.0-36.0); MCV 93.1 fL (80-100); MPV 8.2 fL (7.6-11.3); Nucleated RBC Absolute Count 0.0 (0-0); Nucleated Red Blood Cells % 0.0 % (0-0); RBC Red Blood Cell Count 4.28 M/uL (3.86-4.86); White Blood Count 8.00 thou/uL (4.3-10.9)
[2025-05-30 13:55] LABS: Sqamous Epithelial <5 /HPF (None Seen); Urine Culture Reflex Order NOT NEEDED; Urine Microscopic Reflex YN ORDER UMIC
[2025-05-30 14:08] LABS: Anion Gap 7.6 mEq/L (5.0-15.0); BUN Blood Urea Nitrogen 15.0 mg/dL (7-18); Glucose Level 85.0 mg/dL (74-106); Potassium 3.6 mEq/L (3.5-5.1)
[2025-06-02] MEDS: SCOPOLAMINE HYDROBROMIDE PATCH TD ONE (06:56)
[2025-06-02] MEDS: NA CHLORIDE 0.9% 1,000 ML ONE ×2 (07:00→08:59)
[2025-06-02] MEDS ORDERED: ROCURONIUM 50 MG/5 ML VIAL IV ONE ×2 (07:10→08:53)
[2025-06-02] MEDS ORDERED: GLYCOPYRROLATE 0.2 MG/ML SYR ONE (07:10)
[2025-06-02] MEDS ORDERED: LIDOCAINE 2% MPF 5 ML VIAL ONE (07:10)
[2025-06-02] MEDS ORDERED: ONDANSETRON 4 MG/2 ML VIAL ONE (07:10)
[2025-06-02] MEDS ORDERED: NEOSTIGMINE 1 MG/ML -10 ML VIAL ONE (07:10)
[2025-06-02] MEDS ORDERED: FENTANYL CITR 100 MCG/2 ML ONE ×2 (07:11→08:26)
[2025-06-02] MEDS ORDERED: MIDAZOLAM HCL 2 MG/2 ML INJ ONE (07:12)
[2025-06-02] MEDS: CEFAZOLIN SODIUM 2 GM/VIAL ONE (07:40)
[2025-06-02] MEDS ORDERED: EPHEDRINE SULF 50 MG/ML VIAL ONE (07:43)
[2025-06-02] MEDS: BUPIVACAINE 0.25% PF 30 ML VIAL ONE (07:54)
[2025-06-02] MEDS ORDERED: Mastisol Adhesive Liq ONE (09:04)
[2025-06-02] MEDS ORDERED: KETOROLAC 30 MG/ML INJ ONE (09:43)
[2025-06-02] MEDS: HYDROMORPHONE HCL 1 MG/ML INJ ONE (10:32)
[2025-06-02 10:37] VITALS: O2SAT 100
[2025-06-02 10:49] LABS: Urine Specific Gravity/Preg 1.025 (1.005-1.030)
[2025-06-02] MEDS: HYDROCODONE/APAP 10/325 TAB ONE (11:49)
[2025-06-02 12:04] VITALS: BP 104/64; TEMP 97.3
--- NOTE | 2025-06-02 19:25 | OP ---
Date of Procedure: 06/02/2025 Surgeon: Ermelinda Monet MD Embroidery Specialist: Padmini Benoit. Preoperative Diagnosis: Recurrent menorrhagia. Postoperative Diagnosis: Recurrent menorrhagia. Procedures Performed: Total laparoscopic hysterectomy, bilateral salpingo-oophorectomy, significant lysis of adhesions of the uterus, omentum, and the left colon, the anterior abdominal wall as well as the left lower quadrant and tube, at least 30% of the case was for the lysis of adhesions. Anesthesia: General endotracheal. Estimated Blood Loss: 25. Specimens: Uterus, bilateral tubes, and ovaries. Complications: No complications. Drains: No drains. Condition: Stable. Urine Output: 150. Fluids: 1400. Findings: Anterior abdominal wall adhesions of the uterus as well as the omentum going all the way d own to the suprapubic area. All these were safeguarded and lysis of adhesions were performed for goo d start of the hysterectomy. Vaginal cuff was closed in a single layer using interrupted 0 PDS sutur es x5. There was no need for cystoscopy. The uterosacral ligaments were included back into the vagi nal cuff closure. Indications: The patient is a 49-year-old with history of endometrial ablation for menorrhagia, has recurrent bleeding at this time with some pain. All other treatment options have been discussed with the patient after transvaginal ultrasound and endometrial sampling. No atypia or malignancy found. No adnexal mass was found. So, we discussed about the plan and she wanted to review definitive debr idement using hysterectomy. Description Of Procedure: After informed consent was verified, she was taken back to the OR. 2 g of Ancef were given. SCDs were placed. The patient was intubated, placed in a supine fashion on the o perating table after general anesthesia was given. She was placed in dorsal lithotomy position. Abd omen was prepped with ChloraPrep, vulva, vagina, and perineum with Betadine, and draped in a sterile fashion. Vaginal cuff was exposed using a bilateral speculum. Anterior lip grasped with single-tooth tenaculu m. The cervix dilated to 16-Ukrainian and a large uterine manipulator was introduced and fixed in place . Mondragon was placed to drain the bladder and attached to a drainage bag. A 1 cm supraumbilical incision was made with a scalpel after injecting 0.25% Marcaine at the site. T hen, fascia was incised with a sharp knife and tagged with 0 Vicryl sutures on the edges. Chayito was introduced after the peritoneum was entered bluntly. After adequate insufflation, the patient was p laced in T-ingrid. Significant adhesions of the anterior abdominal wall immediately inferior to the um bilicus and at the umbilicus, these were first taken down after placing a left lower quadrant 5 port. Using the LigaSure, the adhesions were taken down all the way to the left lower quadrant, right low er quadrant, and towards the bladder. The uterus and bladder were adhered together significantly. So, a plane was made between the bladder and the uterus, leaving no uterine tissue behind, this was taken down with sharp dissection and also with LigaSure as needed. Then, once all this came down, there were adhesions of the bladder to the hysterotomy scar. These were also taken down in a sharp fashion using bipolar cautery at times. The n, anterior vaginal wall was visualized, where there was bladder adhesions from the lower portion are a above the trigone to the scar site. Then, both the anterior broad ligament were also adhered. The se were both open. Left lower quadrant adhesions were noted from the colon to the lateral wall at the level of the tube. These were picked up and incised and dissected to take them down. 10 mm suprapubic port was placed under direct visualization. The fascia and the skin were injected with 0.25% Marcaine 10 cc at each site. Once patient was placed in T-ingrid and all the bowel was retracted superiorly, then the left mesosalpi nx was opened up and from the round ligament and the IP. Medially, between the ureter and the IP, the peritoneum was opened up sharply to take the IP ligament. Once this was done, then round ligament was taken down and then posterior peritoneum was dissected all the way to the level of the uterosacral. Anteriorly, the anterior broad ligament was opened already, so the vessels were skeleto nized, taken down the broad ligament. Then, anterior vaginal wall was dissected to dissect the bladd er inferiorly. Once this was done, vessels were cauterized and cut. The cardinal ligaments were cau terized and cut. Then went onto the opposite side and did similar dissection opening of the mesosalp inx and the medial leaf of the peritoneum between the IP and the ureter and the pedicle was taken madhuri n. Then, round ligament was taken down and the rest of the broad ligament, posterior broad ligament, posterior peritoneum were all taken down to expose the vessels. Vessels were cauterized and cut wit h the LigaSure again including the cardinal ligaments with the bipolar cautery and monopolar hook. A nterior vaginal wall was completely dissected off the bladder and exposed at the level of the cup. Circumferential colpotomy with a monopolar hook was performed to detach the specimen and once this wa s retrieved through the vagina with the ovaries and tubes intact, then vaginal cuff was carefully irr igated and closed with simple 0 PDS sutures on the angles and 3 [id number] in the middle with e xcellent apposition and reconnection of the uterosacral ligaments to the apex. Thorough irrigation a nd suction were performed. No evidence of electrical, mechanical, or thermal injury to the ureters. The gas was desufflated. Ports were removed under direct visualization and then fascia at the umbil icus closed with the tagged 0 Vicryl suture tied down and a simple 0 Vicryl stitch at the suprapubic fascial side, interrupted 4-0 Monocryl at all incision sites. Steri-Strips and bandages were placed. Mondragon was removed and vaginal occluder. Instrument and sponge counts were correct at the end of the case. The patient tolerated the procedur e well. She will follow up in 1 week. SANYA/SUREKHA Voice ID: [id number] Report ID: [id number]
== END 2025-06-02 15:41 | disposition home or self-care (01) ==
LOC: OR 06:26
PROVIDERS: ATTEND Obstetrics & Gynecology
PROC: 0UT24ZZ Resection of Bilateral Ovaries, Percutaneous Endoscopic Approach (ICD-10-PCS; 2025-06-02)
PROC: 0UT74ZZ Resection of Bilateral Fallopian Tubes, Percutaneous Endoscopic Approach (ICD-10-PCS; 2025-06-02)
PROC: 0DNU4ZZ Release Omentum, Percutaneous Endoscopic Approach (ICD-10-PCS; 2025-06-02)
PROC: 0DNF4ZZ Release Right Large Intestine, Percutaneous Endoscopic Approach (ICD-10-PCS; 2025-06-02)
PROC: 0UN64ZZ Release Left Fallopian Tube, Percutaneous Endoscopic Approach (ICD-10-PCS; 2025-06-02)
PROC: 0UT94ZZ Resection of Uterus, Percutaneous Endoscopic Approach (ICD-10-PCS; principal; 2025-06-02 07:45)
DX: N92.1 Excessive and frequent menstruation with irregular cycle (principal); N88.8 Other specified noninflammatory disorders of cervix uteri; D25.9 Leiomyoma of uterus, unspecified; N80.03 Adenomyosis of the uterus; N83.01 Follicular cyst of right ovary; N83.02 Follicular cyst of left ovary; N83.8 Other noninflammatory disorders of ovary, fallopian tube and broad ligament; N73.6 Female pelvic peritoneal adhesions (postinfective)
CPT/HCPCS: 85025; 81001; 80048; 36415; 86900; 86850; 81025; 86901; 82947 ×2; 88307; 58571; J1885; J2704; J2710; J2003; J2250; J3010 ×2; J1171; J2405; J7030 ×2; A4314; 88305